=== PATIENT | male | born 1955 | race Caucasian/White ===

== ENCOUNTER 2017-12-24 14:14 | Inpatient (IN) | payer MEDICAID, OTHER ==
[2017-12-24] MEDS ORDERED: Aspirin 325 mg EC Tablets PO STA (14:17)
[2017-12-24] MEDS ORDERED: Heparin25000 units/250ml 1/2NS 25,000 UNITS/250 ML BAG IV STA (14:17)
[2017-12-24] MEDS ORDERED: Morphine 4 MG/ML VIAL ONE (14:24)
[2017-12-24] MEDS ORDERED: Morphine 4 MG/ML VIAL IV STA (14:29)
[2017-12-24 14:32] LABS: BASO # 0.1 K/uL (0.0-0.2); BASO % 0.4 % (0.0-2.0); EOS % 0.2 % (0.0-4.0); HEMOGLOBIN 15.5 g/dL (12.0-18.0); LYMPH # 1.4 K/uL (1.0-4.3); LYMPH % 10.3 % (20.0-40.0); MEAN CELL VOLUME 86.3 fL (80.0-94.0); MEAN CORPUSCULAR HEMOGLOBIN 30.8 pg (27.0-31.0); MEAN CORPUSCULAR HGB CONC 35.6 g/dL (33.0-37.0); MEAN PLATELET VOLUME 10.8 fL (7.2-11.7); MONO # 1.2 K/uL (0.0-0.8); MONO % 8.5 % (0.0-10.0); NEUT # 11.2 K/uL (1.8-7.0); NEUT % 80.6 % (50.0-75.0); RBC 5.05 Mil/uL (4.40-5.90); RED CELL DISTRIBUTION WIDTH 14.7 % (11.5-14.5); WHITE BLOOD COUNT 13.9 K/uL (4.8-10.8)
[2017-12-24 14:35] LABS: NRBC % 0.7 % (0.0-2.0)
[2017-12-24] MEDS ORDERED: Phenylephrine 10 mg/ml Inj ONE (14:38)
[2017-12-24 14:39] LABS: INR 1.1
[2017-12-24 14:41] LABS: PROTHROMBIN TIME 11.9 SECONDS (9.7-12.2)
[2017-12-24 14:44] LABS: ALB/GLOB RATIO 1.2 (1.0-2.1); ALBUMIN 4.8 g/dL (3.5-5.0); ALT/SGPT 89 U/L (21-72); AST/SGOT 356 U/L (17-59); BLOOD UREA NITROGEN 13 mg/dL (9-20); CALCIUM 9.9 mg/dl (8.6-10.4); GFR AFRICAN-AMERICAN > 60; GFR NON-AFRICAN AMERICAN > 60; HDL CHOLESTEROL 42 mg/dL (30-70)
[2017-12-24] MEDS ORDERED: Midazolam 2 MG/2 ML VIAL ONE (14:48)
[2017-12-24 14:55] LABS: LDL CHOLESTEROL 145 mg/dL (0-129)
--- NOTE | 2017-12-24 14:56 | CP.PCM.CON ---
History of Present Illness - History of Present Illness History of Present Illness: Critical Care Consult Note HPI: This is a 62 year old [place] male (speaks Prem) with PMHx of T2DM, who presented to the ED with chest pain x 2 days. 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 Patient arrived here from [place] in October, visiting a friend from his village. Patient does not have family here, he is receding with his friend. He started to have sharp chest pain that started 2 days ago. Initially the pain was bearable, but over time it started to make him diaphoretic and dizzy. Patient was code heart with ST depressions in the inferior wall leads. S/P Cardiac Cath with RCA: Ostial 80%, Mid 100%, PDA 80%, EF: 40%, Inferior akinetic - 4 stents placed. Denied fever, chills, headache, chest pain, SOB, abdominal pain, n/v/d/c, or urinary symptoms. PMHx: T2DM PSHx: Denied Meds: Metformin BID All: NKDA SHx: Denied any tobacco, ETOH or illicit drug use FHx: Unremarkable Past Patient History - Infectious Disease Hx of Infectious Diseases: None - Past Social History Smoking Status: Never Smoked - ENDOCRINE/METABOLIC Hx Diabetes Mellitus Type 2: Yes - PSYCHIATRIC Hx Substance Use: No Meds Allergies/Adverse Reactions: Allergies Allergy/AdvReac Type Severity Reaction Status Date / Time Unobtainable Allergy Verified 12/24/17 14:19 Physical Exam - Constitutional Appears: No Acute Distress - Head Exam Head Exam: NORMAL INSPECTION, NORMOCEPHALIC - Eye Exam Eye Exam: EOMI, Normal appearance, PERRL Pupil Exam: NORMAL ACCOMODATION - ENT Exam ENT Exam: Mucous Membranes Moist - Respiratory Exam Respiratory Exam: Clear to Auscultation Bilateral, NORMAL BREATHING PATTERN - Cardiovascular Exam Cardiovascular Exam: Tachycardia - GI/Abdominal Exam GI & Abdominal Exam: Normal Bowel Sounds, Soft. absent: Distended, Tenderness - Extremities Exam Extremities exam: Positive for: normal inspection, pedal pulses present. Negative for: pedal edema, tenderness Additional comments: right groin catherization site, dressing C/D/I - Neurological Exam Neurological exam: Alert, CN II-XII Intact, Oriented x3 - Psychiatric Exam Psychiatric exam: Normal Affect - Skin Skin Exam: Dry, Intact, Normal Color, Warm Results - Vital Signs Recent Vital Signs: Last Vital Signs Temp 98.3 F 12/24/17 14:15 Pulse 99 H 12/24/17 14:15 Resp 20 12/24/17 14:15 BP 141/88 12/24/17 14:15 Pulse Ox 98 12/24/17 14:15 - Labs Result Diagrams: 12/24/17 14:27 12/24/17 14:27 Labs: Laboratory Results - last 24 hr 12/24/17 12/24/17 12/24/17 14:27 14:27 14:27 WBC 13.9 H RBC 5.05 Hgb 15.5 Hct 43.6 MCV 86.3 MCH 30.8 MCHC 35.6 RDW 14.7 H Plt Count 205 MPV 10.8 Neut % (Auto) 80.6 H Lymph % (Auto) 10.3 L [place] % (Auto) 8.5 Eos % (Auto) 0.2 Baso % (Auto) 0.4 Neut # (Auto) 11.2 H Lymph # (Auto) 1.4 [place] # (Auto) 1.2 H Eos # (Auto) 0.0 Baso # (Auto) 0.1 PT 11.9 INR 1.1 APTT 36 H Sodium 139 Potassium 4.4 Chloride 99 Carbon Dioxide 25 Anion Gap 19 BUN 13 Creatinine 1.0 Est GFR ( Amer) > 60 Est GFR (Non-Af Amer) > 60 Random Glucose 260 H Calcium 9.9 Total Bilirubin 1.1 AST 356 H ALT 89 H Alkaline Phosphatase 110 Total Protein 8.8 H Albumin 4.8 Globulin 4.0 H Albumin/Globulin Ratio 1.2 Triglycerides 143 Cholesterol 199 LDL Cholesterol Direct 145 H HDL Cholesterol 42 Assessment & Plan - Assessment and Plan (Free Text) Plan: Neuro: GCS 15 Cardio: A: STEMI; CODE HEART - EKG: Inferior wall HI - Courtesy Van Driver with Dr. Madrid --> L Main: Patent, LAD proximal 40%, LCx/OM: OM 60%, RCA: Ostial 80%, Mid 100%, PDA 80%, EF: 40%, Inferior akinetic - ECHO - Serial EKGs, lipid panel - ASA, Brilinta (x 1 year), Cozaar, Metoprolol, Crestor - Integrilin drip x 16 hrs, 1/2 NS 50cc x 12 hours Pulm: - No acute issues Endo: A: T2DM - Accuchecks - Carb Consistent / HHD - ISS- low - HGA1C - ASA, Brilinta, Cozaar, Metoprolol, Crestor Prophylaxis: - Pepcid BID - SCDs, ASA, Brilinta, Integrillin jacky Lord, Kira Rasheed DO, PGY-1
[2017-12-24 15:02] LABS: CK-MB 91.3 ng/mL (0.0-3.38)
--- NOTE | 2017-12-24 15:11 | CP.PCM.PN ---
Subjective - Date & Time of Evaluation Date of Evaluation: 12/24/17 Time of Evaluation: 15:10 - Subjective Subjective: Progress note. Code Heart. Pt is 62 yo male, accompanied by family friend, coming in with chest pain x 2 days. Pt has unknown past medical hx and according to friend has not seen a doctor for a long time. 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 Pain was substernal and getting worse. Says never experienced before. So patient came in. Inferior wall UT noted on EKG, code heart called, and Dr. Madrid notified. Pt taken from ER to recyclable products sorter. Objective - Vital Signs/Intake and Output Vital Signs (last 24 hours): Temp Pulse Resp BP Pulse Ox 98.3 F 94 H 20 132/70 98 12/24/17 14:15 12/24/17 14:30 12/24/17 14:30 12/24/17 14:30 12/24/17 14:30 - Medications Medications: Current Medications Sodium Chloride (Sodium Chloride 0.9%) 1,000 mls @ 100 mls/hr IV .Q10H ELIAS Ondansetron HCl (Zofran Inj) 4 mg IVP Q6H PRN PRN Reason: Nausea/Vomiting Pantoprazole Sodium (Protonix Ec Tab) 40 mg PO DAILY ELIAS - Labs Labs: 12/24/17 14:27 12/24/17 14:27 PT 11.9 SECONDS (9.7-12.2) 12/24/17 14:27 INR 1.1 12/24/17 14:27 APTT 36 SECONDS (21-34) H 12/24/17 14:27 - Constitutional Appears: In Acute Distress - Head Exam Head Exam: ATRAUMATIC, NORMAL INSPECTION, NORMOCEPHALIC - Eye Exam Eye Exam: EOMI - ENT Exam ENT Exam: Mucous Membranes Moist - Neck Exam Neck Exam: Full ROM, Normal Inspection - Respiratory Exam Respiratory Exam: absent: Respiratory Distress - Cardiovascular Exam Cardiovascular Exam: +S1, +S2 - GI/Abdominal Exam GI & Abdominal Exam: Soft, Normal Bowel Sounds. absent: Tenderness - Back Exam Back Exam: NORMAL INSPECTION - Neurological Exam Neurological Exam: Alert, Awake, Oriented x3 - Psychiatric Exam Psychiatric exam: Normal Affect, Normal Mood - Skin Skin Exam: Dry, Intact, Normal Color, Warm Assessment and Plan - Assessment and Plan (Free Text) Assessment: 62 yo male with -inferior wall mi -asa given -heparin 5000 iv stat -brillinta 180 mg -morphine 4 mg iv given -code heart called -taken to recyclable products sorter -continue to monitor -will be admitted to ICU
--- NOTE | 2017-12-24 15:24 | RAD ---
HISTORY: code heart COMPARISON: No prior. FINDINGS: LUNGS: No active pulmonary disease. PLEURA: No significant pleural effusion identified, no pneumothorax apparent. CARDIOVASCULAR: Normal. OSSEOUS STRUCTURES: No significant abnormalities. VISUALIZED UPPER ABDOMEN: Normal. OTHER FINDINGS: None. IMPRESSION: No active disease.
[2017-12-24] MEDS ORDERED: Nitroglycerin 50mg in D5W 50 MG/250 ML BOTTLE IV ONE (15:54)
--- NOTE | 2017-12-24 16:27 | CP.PCM.CON ---
History of Present Illness - History of Present Illness History of Present Illness: Patient presented with chest pain of 2 day duration with ongoing chest pain to the ER EKG shown inferior ST elevations with Q waves Code heart activated L Main: Patent LAD proximal 40% LCx/OM: OM 60% RCA: Ostial 80%, Mid 100%, PDA 80% EF: 40%, Inferior akinetic Successful intervention of RCA with 4 drug eluting stents Integrilin drip for 16 hours IVF 50ml 1/2 NS for 12 hours OOB to chair after 8pm tonight Brilinta 90 bid for 1 year ASA 81, Statins, B blockers, LEIGH I for life Past Patient History - Infectious Disease Hx of Infectious Diseases: None - Past Social History Smoking Status: Never Smoked - ENDOCRINE/METABOLIC Hx Diabetes Mellitus Type 2: Yes - PSYCHIATRIC Hx Substance Use: No Meds Allergies/Adverse Reactions: Allergies Allergy/AdvReac Type Severity Reaction Status Date / Time Unobtainable Allergy Verified 12/24/17 14:19 - Medications Medications: Current Medications Aspirin (Aspirin Chewable) 81 mg PO DAILY ELIAS Famotidine (Pepcid) 20 mg PO BID ELIAS Sodium Chloride (Sodium Chloride 0.45%) 1,000 mls @ 50 mls/hr IV .Q20H ELIAS Stop: 12/25/17 04:31 Eptifibatide (Integrilin) 75 mg in 100 mls @ 0 mls/hr IV .Q0M ELIAS PRN Reason: 11 MCG/KG/MIN Stop: 12/25/17 08:31 Insulin Human Regular (Novolin R) 0 unit SC ACHS ELIAS PRN Reason: Protocol Losartan Potassium (Cozaar) 25 mg PO DAILY ELIAS Ondansetron HCl (Zofran Inj) 4 mg IVP Q6H PRN PRN Reason: Nausea/Vomiting Rosuvastatin Calcium (Crestor) 40 mg PO HS ELIAS Ticagrelor (Brilinta) 90 mg PO BID ELIAS Results - Vital Signs Recent Vital Signs: Last Vital Signs Temp 98.3 F 12/24/17 14:15 Pulse 94 H 12/24/17 14:30 Resp 20 12/24/17 14:30 BP 132/70 12/24/17 14:30 Pulse Ox 98 12/24/17 14:30 - Labs Result Diagrams: 12/24/17 14:27 12/24/17 14:27 Labs: Laboratory Results - last 24 hr 12/24/17 12/24/17 12/24/17 14:27 14:27 14:27 WBC 13.9 H RBC 5.05 Hgb 15.5 Hct 43.6 MCV 86.3 MCH 30.8 MCHC 35.6 RDW 14.7 H Plt Count 205 MPV 10.8 Neut % (Auto) 80.6 H Lymph % (Auto) 10.3 L [place] % (Auto) 8.5 Eos % (Auto) 0.2 Baso % (Auto) 0.4 Neut # (Auto) 11.2 H Lymph # (Auto) 1.4 [place] # (Auto) 1.2 H Eos # (Auto) 0.0 Baso # (Auto) 0.1 PT 11.9 INR 1.1 APTT 36 H Sodium 139 Potassium 4.4 Chloride 99 Carbon Dioxide 25 Anion Gap 19 BUN 13 Creatinine 1.0 Est GFR ( Amer) > 60 Est GFR (Non-Af Amer) > 60 Random Glucose 260 H Calcium 9.9 Total Bilirubin 1.1 AST 356 H ALT 89 H Alkaline Phosphatase 110 Total Creatine Kinase 2370 H CK-MB (Mass) 91.3 H Troponin I 89.3000 H* Total Protein 8.8 H Albumin 4.8 Globulin 4.0 H Albumin/Globulin Ratio 1.2 Triglycerides 143 Cholesterol 199 LDL Cholesterol Direct 145 H HDL Cholesterol 42 Blood Type Antibody Screen 12/24/17 14:27 WBC RBC Hgb Hct MCV MCH MCHC RDW Plt Count MPV Neut % (Auto) Lymph % (Auto) [place] % (Auto) Eos % (Auto) Baso % (Auto) Neut # (Auto) Lymph # (Auto) [place] # (Auto) Eos # (Auto) Baso # (Auto) PT INR APTT Sodium Potassium Chloride Carbon Dioxide Anion Gap BUN Creatinine Est GFR ( Amer) Est GFR (Non-Af Amer) Random Glucose Calcium Total Bilirubin AST ALT Alkaline Phosphatase Total Creatine Kinase CK-MB (Mass) Troponin I Total Protein Albumin Globulin Albumin/Globulin Ratio Triglycerides Cholesterol LDL Cholesterol Direct HDL Cholesterol Blood Type O POSITIVE Antibody Screen Negative
[2017-12-24] MEDS ORDERED: Eptifibatide 0.75 mg/ml 75 MG/100 ML BOTTLE IV SCH ×2 (16:30)
[2017-12-24] MEDS ORDERED: Sodium Chloride 0.9% 1,000 ML IV SCH (16:30)
[2017-12-24] MEDS ORDERED: Sodium Chloride 0.45% 1,000 ML IV SCH (16:30)
[2017-12-24] MEDS ORDERED: Eptifibatide 0.75 mg/ml 75 MG/100 ML BOTTLE IV ONE (16:46)
[2017-12-24] MEDS ORDERED: Eptifibatide 20 mg/10mL Inj IVP ONE (16:46)
[2017-12-24] MEDS: (Novolin R) Insulin Human Regular 100 units/ml vial SC SCH ×2 (17:00→23:00)
[2017-12-24] MEDS: Metoprolol Succinate 12.5 mg XL Tab PO SCH (17:33)
--- NOTE | 2017-12-24 17:58 | C.PDOC ---
History Of Present Illness 62 y/o male with history of DM presents to ED with c/o chest pain since yesterday associated with mild sob. Patient went to a primary doctor office and had EKG done that showed ST elevations, was sent to ED immediately. Patient denies fever, cough or any other complaints at this time. Chief Complaint (Nursing): Chest Pain History Per: Patient, EMS History/Exam Limitations: no limitations Onset/Duration Of Symptoms: Days Current Symptoms Are (Timing): Still Present Quality: "Pain" Past Medical History Reviewed: Historical Data, Nursing Documentation, Vital Signs Vital Signs: Last Vital Signs Temp 99.6 F 12/24/17 20:00 Pulse 104 H 12/24/17 21:00 Resp 29 H 12/24/17 21:00 BP 131/69 12/24/17 21:00 Pulse Ox 99 12/24/17 21:00 - Medical History PMH: No Chronic Diseases Surgical History: No Surg Hx Family History: States: No Known Family Hx - Social History Hx Alcohol Use: No Hx Substance Use: No - Immunization History Hx Tetanus Toxoid Vaccination: No Hx Influenza Vaccination: No Hx Pneumococcal Vaccination: No Review Of Systems Constitutional: Negative for: Fever, Chills Cardiovascular: Positive for: Chest Pain. Negative for: Palpitations Respiratory: Positive for: Shortness of Breath. Negative for: Cough Gastrointestinal: Negative for: Nausea, Vomiting Physical Exam - Physical Exam Appears: Non-toxic, No Acute Distress Skin: Warm, Dry, No Rash Head: Atraumatic, Normacephalic Eye(s): bilateral: Normal Inspection Oral Mucosa: Moist Neck: Normal ROM, Supple Cardiovascular: Rhythm Regular Respiratory: Normal Breath Sounds, No Rales, No Rhonchi, No Wheezing Gastrointestinal/Abdominal: Soft, No Tenderness, No Guarding, No Rebound Extremity: Normal ROM, No Pedal Edema, Capillary Refill (<2 seconds) Neurological/Psych: Oriented x3, Normal Speech, Normal Cognition ED Course And Treatment - Laboratory Results Result Diagrams: 12/24/17 14:27 12/24/17 14:27 ECG: Interpreted By Me, Viewed By Me Interpretation Of ECG: ST elevations in 2,3 and AVF. 1st degree AV block. 93 BPM Rate From EC (BPM) O2 Sat by Pulse Oximetry: 98 (RA) Pulse Ox Interpretation: Normal Critical Care Time - Critical Care Note Total Time (in mins): 30 Documented critical care: time excludes all time spent performing seperately billable procedures. Medical Decision Making Medical Decision Making: Progress: 1410: Code heart called Spoke to Dr. Holt soon after Patient medicated in ED as instructed by Dr. 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 I have reviewed the chart and agree that the record accurately reflects my personal performance of the history, physical exam, medical decision making, and the department course for this patient. I have also personally directed, reviewed, and agree with the discharge instructions and disposition.
[2017-12-24] MEDS ORDERED: Metoprolol Succinate 12.5 mg XL Tab PO SCH (18:00)
--- NOTE | 2017-12-24 19:11 | CP.PCM.HP ---
Past Patient History - Infectious Disease Hx of Infectious Diseases: None - Past Medical History & Family History Past Medical History?: Yes - Past Social History Smoking Status: Never Smoked - ENDOCRINE/METABOLIC Hx Diabetes Mellitus Type 2: Yes - MUSCULOSKELETAL/RHEUMATOLOGICAL Hx Falls: No - PSYCHIATRIC Hx Substance Use: No - ANESTHESIA Hx Anesthesia: No Hx Anesthesia Reactions: No Hx Malignant Hyperthermia: No Has any member of the family had a problem w/ anesthesia?: No Meds Allergies/Adverse Reactions: Allergies Allergy/AdvReac Type Severity Reaction Status Date / Time Unobtainable Allergy Verified 12/24/17 14:19 Physical Exam - Constitutional Appears: Well - Head Exam Head Exam: ATRAUMATIC, NORMAL INSPECTION, NORMOCEPHALIC - Eye Exam Eye Exam: EOMI, Normal appearance, PERRL Pupil Exam: NORMAL ACCOMODATION, PERRL - ENT Exam ENT Exam: Mucous Membranes Moist, Normal Exam - Neck Exam Neck exam: Positive for: Normal Inspection - Respiratory Exam Respiratory Exam: Decreased Breath Sounds - Cardiovascular Exam Cardiovascular Exam: REGULAR RHYTHM, +S1, +S2 - GI/Abdominal Exam GI & Abdominal Exam: Diminished Bowel Sounds, Soft - Rectal Exam Rectal Exam: Deferred Results - Vital Signs Recent Vital Signs: Last Vital Signs Temp 98.4 F 12/24/17 16:00 Pulse 104 H 12/24/17 18:00 Resp 18 12/24/17 18:00 BP 121/80 12/24/17 18:00 Pulse Ox 98 12/24/17 18:06 - Labs Result Diagrams: 12/24/17 14:27 12/24/17 14:27 Labs: Laboratory Results - last 24 hr 12/24/17 12/24/17 12/24/17 14:27 14:27 14:27 WBC 13.9 H RBC 5.05 Hgb 15.5 Hct 43.6 MCV 86.3 MCH 30.8 MCHC 35.6 RDW 14.7 H Plt Count 205 MPV 10.8 Neut % (Auto) 80.6 H Lymph % (Auto) 10.3 L [place] % (Auto) 8.5 Eos % (Auto) 0.2 Baso % (Auto) 0.4 Neut # (Auto) 11.2 H Lymph # (Auto) 1.4 [place] # (Auto) 1.2 H Eos # (Auto) 0.0 Baso # (Auto) 0.1 PT 11.9 INR 1.1 APTT 36 H Sodium 139 Potassium 4.4 Chloride 99 Carbon Dioxide 25 Anion Gap 19 BUN 13 Creatinine 1.0 Est GFR ( Amer) > 60 Est GFR (Non-Af Amer) > 60 POC Glucose (mg/dL) Random Glucose 260 H Calcium 9.9 Total Bilirubin 1.1 AST 356 H ALT 89 H Alkaline Phosphatase 110 Total Creatine Kinase 2370 H CK-MB (Mass) 91.3 H Troponin I 89.3000 H* Total Protein 8.8 H Albumin 4.8 Globulin 4.0 H Albumin/Globulin Ratio 1.2 Triglycerides 143 Cholesterol 199 LDL Cholesterol Direct 145 H HDL Cholesterol 42 Blood Type Antibody Screen 12/24/17 12/24/17 14:27 16:54 WBC RBC Hgb Hct MCV MCH MCHC RDW Plt Count MPV Neut % (Auto) Lymph % (Auto) [place] % (Auto) Eos % (Auto) Baso % (Auto) Neut # (Auto) Lymph # (Auto) [place] # (Auto) Eos # (Auto) Baso # (Auto) PT INR APTT Sodium Potassium Chloride Carbon Dioxide Anion Gap BUN Creatinine Est GFR ( Amer) Est GFR (Non-Af Amer) POC Glucose (mg/dL) 254 H Random Glucose Calcium Total Bilirubin AST ALT Alkaline Phosphatase Total Creatine Kinase CK-MB (Mass) Troponin I Total Protein Albumin Globulin Albumin/Globulin Ratio Triglycerides Cholesterol LDL Cholesterol Direct HDL Cholesterol Blood Type O POSITIVE Antibody Screen Negative
[2017-12-24] MEDS: Eptifibatide 0.75 mg/ml 75 MG/100 ML BOTTLE IV SCH ×2 (19:55→23:00)
--- NOTE | 2017-12-24 22:09 | CP.PCM.HP ---
Past Patient History - Infectious Disease Hx of Infectious Diseases: None - Past Medical History & Family History Past Medical History?: Yes - Past Social History Smoking Status: Never Smoked - ENDOCRINE/METABOLIC Hx Diabetes Mellitus Type 2: Yes - MUSCULOSKELETAL/RHEUMATOLOGICAL Hx Falls: No - PSYCHIATRIC Hx Substance Use: No - ANESTHESIA Hx Anesthesia: No Hx Anesthesia Reactions: No Hx Malignant Hyperthermia: No Has any member of the family had a problem w/ anesthesia?: No Meds Allergies/Adverse Reactions: Allergies Allergy/AdvReac Type Severity Reaction Status Date / Time No Known Allergies Allergy Verified 12/24/17 19:39 Results - Vital Signs Recent Vital Signs: Last Vital Signs Temp 99.6 F 12/24/17 20:00 Pulse 104 H 12/24/17 21:00 Resp 29 H 12/24/17 21:00 BP 131/69 12/24/17 21:00 Pulse Ox 99 12/24/17 21:00 - Labs Result Diagrams: 12/24/17 14:27 12/24/17 14:27 Labs: Laboratory Results - last 24 hr 12/24/17 12/24/17 12/24/17 14:27 14:27 14:27 WBC 13.9 H RBC 5.05 Hgb 15.5 Hct 43.6 MCV 86.3 MCH 30.8 MCHC 35.6 RDW 14.7 H Plt Count 205 MPV 10.8 Neut % (Auto) 80.6 H Lymph % (Auto) 10.3 L [place] % (Auto) 8.5 Eos % (Auto) 0.2 Baso % (Auto) 0.4 Neut # (Auto) 11.2 H Lymph # (Auto) 1.4 [place] # (Auto) 1.2 H Eos # (Auto) 0.0 Baso # (Auto) 0.1 PT 11.9 INR 1.1 APTT 36 H Sodium 139 Potassium 4.4 Chloride 99 Carbon Dioxide 25 Anion Gap 19 BUN 13 Creatinine 1.0 Est GFR ( Amer) > 60 Est GFR (Non-Af Amer) > 60 POC Glucose (mg/dL) Random Glucose 260 H Calcium 9.9 Total Bilirubin 1.1 AST 356 H ALT 89 H Alkaline Phosphatase 110 Total Creatine Kinase 2370 H CK-MB (Mass) 91.3 H Troponin I 89.3000 H* Total Protein 8.8 H Albumin 4.8 Globulin 4.0 H Albumin/Globulin Ratio 1.2 Triglycerides 143 Cholesterol 199 LDL Cholesterol Direct 145 H HDL Cholesterol 42 Blood Type Antibody Screen 12/24/17 12/24/17 12/24/17 14:27 16:54 21:09 WBC RBC Hgb Hct MCV MCH MCHC RDW Plt Count MPV Neut % (Auto) Lymph % (Auto) [place] % (Auto) Eos % (Auto) Baso % (Auto) Neut # (Auto) Lymph # (Auto) [place] # (Auto) Eos # (Auto) Baso # (Auto) PT INR APTT Sodium Potassium Chloride Carbon Dioxide Anion Gap BUN Creatinine Est GFR ( Amer) Est GFR (Non-Af Amer) POC Glucose (mg/dL) 254 H 340 H Random Glucose Calcium Total Bilirubin AST ALT Alkaline Phosphatase Total Creatine Kinase CK-MB (Mass) Troponin I Total Protein Albumin Globulin Albumin/Globulin Ratio Triglycerides Cholesterol LDL Cholesterol Direct HDL Cholesterol Blood Type O POSITIVE Antibody Screen Negative
--- NOTE | 2017-12-25 02:44 | CARDCATH ---
PROCEDURE DATE: 12/24/2017 PROCEDURES: 1. Left heart catheterization. 2. Coronary angiogram. 3. Right coronary artery intervention and drug-eluting stent placement. CLINICAL INDICATIONS: 1. Acute inferior wall ST elevation myocardial infarction. 2. Chest pain. 3. Hypertension. 4. Diabetes. 5. Hyperlipidemia. BRIEF CLINICAL HISTORY: Winter Hay is a 62-year-old gentleman with a history of hypertension, diabetes, hyperlipidemia, presented to [facility] emergency room with two days duration of chest pain. The EKG in the ER has revealed acute ST elevations and Q wave from the inferior leads. Code heart was activated, and the patient was brought to catheter lab. After informed consent, the patient was prepped and draped in the usual sterile fashion. 2% lidocaine was given in the right groin for local anesthesia. Using the usual diagnostic catheter, left heart catheterization and coronary angiogram was performed. FINDINGS: 1. Left main coronary artery is patent. 2. Proximal LAD has 40% stenosis. Mid and distal LAD is patent. Diagonal valves are patent. 3. Left circumflex has a very small artery. Obtuse marginal 1 has a 50% to 60% stenosis. 4. Right coronary artery is dominant. Ostial right coronary artery is 80% stenosis. Mid right coronary artery is totally occluded. The patient was loaded with Brilinta, aspirin and IV heparin in the ER. ACT was maintained about 250. Due to the clot burden in the RCA, the patient was also started on Integrilin bolus and drip. Right coronary artery intervention: Right coronary artery was engaged using JR4 6-Iranian guide catheter. The lesions were crossed using run through coronary wire. The mid right coronary artery was pre-dilated using 2.5 x 15 compliant balloon. Subsequent angiogram has revealed heavy clot burden in the distal RCA. There was an 80% PDA lesion also detected. There was a long lesion in the mid right coronary artery. Using a Pronto aspiration catheter, the clot was aspirated. Two passes were performed. PDA lesion was predilated and stented with 2.25 x 12 Xience Alpine drug eluting stent. Mid to distal ostia was stented using 2.75 x 34 Resolute Giuseppe drug-eluting stent. Mid to proximal RCA was stented using 2.75 x 26 Resolute Giuseppe drug-eluting stents. The stents were adequately post dilated. Stent overlap was also post dilated. Then the proximal ostia was predilated using 2.5 x 12 compliant balloon, stented with 3 x 28 Xience Alpine drug-eluting stent. Excellent final angiographic results with brisk [place]-3 flow noted. SUMMARY: Acute inferior wall ST-elevation myocardial infarction. The patient had chest pain duration of two days due to heavy clot burden, Pronto aspiration thrombectomy was performed. The patient will be transferred to the ICU for further management. Vaughn Madrid MD
[2017-12-25] MEDS: Eptifibatide 0.75 mg/ml 75 MG/100 ML BOTTLE IV SCH (05:00)
[2017-12-25 06:38] LABS: BASO % 0.2 % (0.0-2.0); HEMOGLOBIN 13.1 g/dL (12.0-18.0); LYMPH # 1.2 K/uL (1.0-4.3); MEAN CELL VOLUME 87.6 fL (80.0-94.0); MEAN CORPUSCULAR HEMOGLOBIN 30.9 pg (27.0-31.0); MEAN CORPUSCULAR HGB CONC 35.3 g/dL (33.0-37.0); MEAN PLATELET VOLUME 11.6 fL (7.2-11.7); MONO # 2.2 K/uL (0.0-0.8); MONO % 10.5 % (0.0-10.0); NEUT # 17.1 K/uL (1.8-7.0); NEUT % 83.3 % (50.0-75.0); PLATELET COUNT 219 K/uL (130-400); RBC 4.25 Mil/uL (4.40-5.90); RED CELL DISTRIBUTION WIDTH 14.8 % (11.5-14.5); WHITE BLOOD COUNT 20.5 K/uL (4.8-10.8)
[2017-12-25 06:55] LABS: ALB/GLOB RATIO 1.2 (1.0-2.1); ALT/SGPT 66 U/L (21-72); AST/SGOT 238 U/L (17-59); BLOOD UREA NITROGEN 15 mg/dL (9-20); CALCIUM 8.8 mg/dl (8.6-10.4); GFR AFRICAN-AMERICAN > 60; GFR NON-AFRICAN AMERICAN > 60
[2017-12-25] MEDS: (Novolin R) Insulin Human Regular 100 units/ml vial SC SCH ×4 (07:38→21:18)
[2017-12-25 08:35] LABS: BANDS 27 % (0-2); LYMPHOCYTE 5 % (20-40); MONOCYTE 6 % (0-10); NEUTROPHIL 62 % (50-75); TOTAL CELLS COUNTED 100
[2017-12-25 08:36] LABS: LARGE PLATELETS PRESENT; PLATELET ESTIMATE NORMAL (NORMAL)
[2017-12-25] MEDS: Metoprolol Succinate 12.5 mg XL Tab PO SCH ×2 (10:28→18:01)
[2017-12-25 10:29] LABS: BASO % 0.3 % (0.0-2.0); HEMOGLOBIN 12.4 g/dL (12.0-18.0); LYMPH # 1.3 K/uL (1.0-4.3); LYMPH % 6.9 % (20.0-40.0); MEAN CELL VOLUME 87.3 fL (80.0-94.0); MEAN CORPUSCULAR HEMOGLOBIN 30.5 pg (27.0-31.0); MEAN CORPUSCULAR HGB CONC 34.9 g/dL (33.0-37.0); MEAN PLATELET VOLUME 11.2 fL (7.2-11.7); MONO # 1.5 K/uL (0.0-0.8); MONO % 8.4 % (0.0-10.0); NEUT # 15.5 K/uL (1.8-7.0); NEUT % 84.4 % (50.0-75.0); RBC 4.07 Mil/uL (4.40-5.90); RED CELL DISTRIBUTION WIDTH 14.6 % (11.5-14.5); WHITE BLOOD COUNT 18.4 K/uL (4.8-10.8)
[2017-12-25 11:04] LABS: CK-MB 30.9 ng/mL (0.0-3.38)
[2017-12-25 11:29] LABS: TROPONIN I 98.4 ng/mL (0.00-0.120)
--- NOTE | 2017-12-25 11:40 | CP.CCUPN ---
<Kira Rasheed - Last Filed: 12/25/17 11:36> CCU Subjective - Physician Review Subjective (Free Text): Patient seen and examined at bedside. Tolerated diet, ambulating around room, denied chest pain, shortness of breath. CCU Objective - Vital Signs / Intake & Output Vital Signs (Last 4 hours): Vital Signs Temp Pulse Resp BP Pulse Ox 12/25/17 11:00 103 H 22 128/79 98 12/25/17 10:00 104 H 22 108/70 99 12/25/17 09:00 103 H 21 110/54 L 98 12/25/17 08:00 98.7 F 101 H 22 101/64 99 Intake and Output (Last 8hrs): Intake & Output 12/24/17 12/25/17 12/25/17 22:59 06:59 14:59 Intake Total 787 848 201 Output Total 600 400 500 Balance 187 448 -299 Weight 153 lb 7.068 oz 153 lb 7.068 oz Intake: Intake, IV Amount 427 488 61 Left Antecubital 200 Right Antecubital 77 88 11 Right Antecubital side- 150 400 50 port Oral 360 360 140 Output: Urine 600 400 500 Urine, Voided 600 400 500 Other: # Voids Urine, Voided 1 1 - Medications Active Medications: Active Medications Generic Name Dose Route Start Last Admin Trade Name Freq PRN Reason Stop Dose Admin Aspirin 81 mg 12/25/17 10:00 12/25/17 10:28 Aspirin Chewable PO 81 mg DAILY ELIAS Administration Famotidine 20 mg 12/24/17 18:00 12/25/17 10:28 Pepcid PO 20 mg BID ELIAS Administration Heparin Sodium (Porcine) 5,000 units 12/25/17 14:00 Heparin SC Q8 ELIAS Insulin Human Regular 0 unit 12/25/17 08:15 Novolin R SC ACHS ELIAS Protocol Losartan Potassium 25 mg 12/25/17 10:00 12/25/17 10:29 Cozaar PO 25 mg DAILY ELIAS Administration Metoprolol Succinate 12.5 mg 12/24/17 18:00 12/25/17 10:28 Toprol Xl PO 12.5 mg BID ELIAS Administration Ondansetron HCl 4 mg 12/24/17 14:58 Zofran Inj IVP Q6H PRN Nausea/Vomiting Rosuvastatin Calcium 40 mg 12/24/17 22:00 12/24/17 21:10 Crestor PO 40 mg HS ELIAS Administration Ticagrelor 90 mg 12/25/17 10:00 12/25/17 10:28 Brilinta PO 90 mg BID ELIAS Administration - Patient Studies Lab Studies: Lab Studies 12/25/17 12/25/17 12/25/17 Range/Units 10:24 10:24 07:23 WBC 18.4 H (4.8-10.8) K/uL RBC 4.07 L (4.40-5.90) Mil/uL Hgb 12.4 (12.0-18.0) g/dL Hct 35.5 (35.0-51.0) % MCV 87.3 (80.0-94.0) fL MCH 30.5 (27.0-31.0) pg MCHC 34.9 (33.0-37.0) g/dL RDW 14.6 H (11.5-14.5) % Plt Count 195 (130-400) K/uL MPV 11.2 (7.2-11.7) fL Neut % (Auto) 84.4 H (50.0-75.0) % Lymph % (Auto) 6.9 L (20.0-40.0) % Cedar % (Auto) 8.4 (0.0-10.0) % Eos % (Auto) 0.0 (0.0-4.0) % Baso % (Auto) 0.3 (0.0-2.0) % Neut # (Auto) 15.5 H (1.8-7.0) K/uL Lymph # (Auto) 1.3 (1.0-4.3) K/uL Cedar # (Auto) 1.5 H (0.0-0.8) K/uL Eos # (Auto) 0.0 (0.0-0.7) K/uL Baso # (Auto) 0.0 (0.0-0.2) K/uL Neutrophils % (Manual) (50-75) % Band Neutrophils % (0-2) % Lymphocytes % (Manual) (20-40) % Monocytes % (Manual) (0-10) % Platelet Estimate (NORMAL) Large Platelets RBC Morphology PT (9.7-12.2) SECONDS INR APTT (21-34) SECONDS Sodium (132-148) mmol/L Potassium (3.6-5.2) mmol/L Chloride (98-107) mmol/L Carbon Dioxide (22-30) mmol/L Anion Gap (10-20) BUN (9-20) mg/dL Creatinine (0.8-1.5) mg/dL Est GFR ( Amer) Est GFR (Non-Af Amer) POC Glucose (mg/dL) 318 H (65-110) mg/dL Random Glucose (75-110) mg/dL Hemoglobin A1c (4.2-6.5) % Calcium (8.6-10.4) mg/dl Phosphorus (2.5-4.5) mg/dL Magnesium (1.6-2.3) mg/dL Total Bilirubin (0.2-1.3) mg/dL AST (17-59) U/L ALT (21-72) U/L Alkaline Phosphatase (38-126) U/L Total Creatine Kinase 1138 H (55-170) U/L CK-MB (Mass) 30.9 H (0.0-3.38) ng/mL Troponin I 98.4000 H* (0.00-0.120) ng/mL Total Protein (6.3-8.3) g/dL Albumin (3.5-5.0) g/dL Globulin (2.2-3.9) gm/dL Albumin/Globulin Ratio (1.0-2.1) Triglycerides (0-149) mg/dL Cholesterol (0-199) mg/dL LDL Cholesterol Direct (0-129) mg/dL HDL Cholesterol (30-70) mg/dL Blood Type Antibody Screen 12/25/1718 12/25/17 Range/Units 06:28 06:28 06:27 WBC 20.5 H (4.8-10.8) K/uL RBC 4.25 L (4.40-5.90) Mil/uL Hgb 13.1 D (12.0-18.0) g/dL Hct 37.3 (35.0-51.0) % MCV 87.6 (80.0-94.0) fL MCH 30.9 (27.0-31.0) pg MCHC 35.3 (33.0-37.0) g/dL RDW 14.8 H (11.5-14.5) % Plt Count 219 (130-400) K/uL MPV 11.6 (7.2-11.7) fL Neut % (Auto) 83.3 H (50.0-75.0) % Lymph % (Auto) 6.0 L (20.0-40.0) % Cedar % (Auto) 10.5 H (0.0-10.0) % Eos % (Auto) 0.0 (0.0-4.0) % Baso % (Auto) 0.2 (0.0-2.0) % Neut # (Auto) 17.1 H (1.8-7.0) K/uL Lymph # (Auto) 1.2 (1.0-4.3) K/uL Cedar # (Auto) 2.2 H (0.0-0.8) K/uL Eos # (Auto) 0.0 (0.0-0.7) K/uL Baso # (Auto) 0.0 (0.0-0.2) K/uL Neutrophils % (Manual) 62 (50-75) % Band Neutrophils % 27 H* (0-2) % Lymphocytes % (Manual) 5 L (20-40) % Monocytes % (Manual) 6 (0-10) % Platelet Estimate Normal (NORMAL) Large Platelets Present RBC Morphology Normal PT (9.7-12.2) SECONDS INR APTT (21-34) SECONDS Sodium 133 (132-148) mmol/L Potassium 4.3 (3.6-5.2) mmol/L Chloride 96 L (98-107) mmol/L Carbon Dioxide 21 L (22-30) mmol/L Anion Gap 20 (10-20) BUN 15 (9-20) mg/dL Creatinine 1.1 (0.8-1.5) mg/dL Est GFR ( Amer) > 60 Est GFR (Non-Af Amer) > 60 POC Glucose (mg/dL) (65-110) mg/dL Random Glucose 279 H (75-110) mg/dL Hemoglobin A1c 8.2 H (4.2-6.5) % Calcium 8.8 (8.6-10.4) mg/dl Phosphorus 3.4 (2.5-4.5) mg/dL Magnesium 1.7 (1.6-2.3) mg/dL Total Bilirubin 1.6 H (0.2-1.3) mg/dL AST 238 H D (17-59) U/L ALT 66 (21-72) U/L Alkaline Phosphatase 83 (38-126) U/L Total Creatine Kinase (55-170) U/L CK-MB (Mass) (0.0-3.38) ng/mL Troponin I (0.00-0.120) ng/mL Total Protein 7.2 (6.3-8.3) g/dL Albumin 4.0 (3.5-5.0) g/dL Globulin 3.2 (2.2-3.9) gm/dL Albumin/Globulin Ratio 1.2 (1.0-2.1) Triglycerides (0-149) mg/dL Cholesterol (0-199) mg/dL LDL Cholesterol Direct (0-129) mg/dL HDL Cholesterol (30-70) mg/dL Blood Type Antibody Screen 12/24/17 12/24/17 12/24/17 Range/Units 21:09 16:54 14:27 WBC (4.8-10.8) K/uL RBC (4.40-5.90) Mil/uL Hgb (12.0-18.0) g/dL Hct (35.0-51.0) % MCV (80.0-94.0) fL MCH (27.0-31.0) pg MCHC (33.0-37.0) g/dL RDW (11.5-14.5) % Plt Count (130-400) K/uL MPV (7.2-11.7) fL Neut % (Auto) (50.0-75.0) % Lymph % (Auto) (20.0-40.0) % Cedar % (Auto) (0.0-10.0) % Eos % (Auto) (0.0-4.0) % Baso % (Auto) (0.0-2.0) % Neut # (Auto) (1.8-7.0) K/uL Lymph # (Auto) (1.0-4.3) K/uL Cedar # (Auto) (0.0-0.8) K/uL Eos # (Auto) (0.0-0.7) K/uL Baso # (Auto) (0.0-0.2) K/uL Neutrophils % (Manual) (50-75) % Band Neutrophils % (0-2) % Lymphocytes % (Manual) (20-40) % Monocytes % (Manual) (0-10) % Platelet Estimate (NORMAL) Large Platelets RBC Morphology PT (9.7-12.2) SECONDS INR APTT (21-34) SECONDS Sodium (132-148) mmol/L Potassium (3.6-5.2) mmol/L Chloride (98-107) mmol/L Carbon Dioxide (22-30) mmol/L Anion Gap (10-20) BUN (9-20) mg/dL Creatinine (0.8-1.5) mg/dL Est GFR ( Amer) Est GFR (Non-Af Amer) POC Glucose (mg/dL) 340 H 254 H (65-110) mg/dL Random Glucose (75-110) mg/dL Hemoglobin A1c (4.2-6.5) % Calcium (8.6-10.4) mg/dl Phosphorus (2.5-4.5) mg/dL Magnesium (1.6-2.3) mg/dL Total Bilirubin (0.2-1.3) mg/dL AST (17-59) U/L ALT (21-72) U/L Alkaline Phosphatase (38-126) U/L Total Creatine Kinase (55-170) U/L CK-MB (Mass) (0.0-3.38) ng/mL Troponin I (0.00-0.120) ng/mL Total Protein (6.3-8.3) g/dL Albumin (3.5-5.0) g/dL Globulin (2.2-3.9) gm/dL Albumin/Globulin Ratio (1.0-2.1) Triglycerides (0-149) mg/dL Cholesterol (0-199) mg/dL LDL Cholesterol Direct (0-129) mg/dL HDL Cholesterol (30-70) mg/dL Blood Type O POSITIVE Antibody Screen Negative 12/24/17 12/24/17 12/24/17 Range/Units 14:27 14:27 14:27 WBC 13.9 H (4.8-10.8) K/uL RBC 5.05 (4.40-5.90) Mil/uL Hgb 15.5 (12.0-18.0) g/dL Hct 43.6 (35.0-51.0) % MCV 86.3 (80.0-94.0) fL MCH 30.8 (27.0-31.0) pg MCHC 35.6 (33.0-37.0) g/dL RDW 14.7 H (11.5-14.5) % Plt Count 205 (130-400) K/uL MPV 10.8 (7.2-11.7) fL Neut % (Auto) 80.6 H (50.0-75.0) % Lymph % (Auto) 10.3 L (20.0-40.0) % Cedar % (Auto) 8.5 (0.0-10.0) % Eos % (Auto) 0.2 (0.0-4.0) % Baso % (Auto) 0.4 (0.0-2.0) % Neut # (Auto) 11.2 H (1.8-7.0) K/uL Lymph # (Auto) 1.4 (1.0-4.3) K/uL Cedar # (Auto) 1.2 H (0.0-0.8) K/uL Eos # (Auto) 0.0 (0.0-0.7) K/uL Baso # (Auto) 0.1 (0.0-0.2) K/uL Neutrophils % (Manual) (50-75) % Band Neutrophils % (0-2) % Lymphocytes % (Manual) (20-40) % Monocytes % (Manual) (0-10) % Platelet Estimate (NORMAL) Large Platelets RBC Morphology PT 11.9 (9.7-12.2) SECONDS INR 1.1 APTT 36 H (21-34) SECONDS Sodium 139 (132-148) mmol/L Potassium 4.4 (3.6-5.2) mmol/L Chloride 99 (98-107) mmol/L Carbon Dioxide 25 (22-30) mmol/L Anion Gap 19 (10-20) BUN 13 (9-20) mg/dL Creatinine 1.0 (0.8-1.5) mg/dL Est GFR ( Amer) > 60 Est GFR (Non-Af Amer) > 60 POC Glucose (mg/dL) (65-110) mg/dL Random Glucose 260 H (75-110) mg/dL Hemoglobin A1c (4.2-6.5) % Calcium 9.9 (8.6-10.4) mg/dl Phosphorus (2.5-4.5) mg/dL Magnesium (1.6-2.3) mg/dL Total Bilirubin 1.1 (0.2-1.3) mg/dL AST 356 H (17-59) U/L ALT 89 H (21-72) U/L Alkaline Phosphatase 110 (38-126) U/L Total Creatine Kinase 2370 H (55-170) U/L CK-MB (Mass) 91.3 H (0.0-3.38) ng/mL Troponin I 89.3000 H* (0.00-0.120) ng/mL Total Protein 8.8 H (6.3-8.3) g/dL Albumin 4.8 (3.5-5.0) g/dL Globulin 4.0 H (2.2-3.9) gm/dL Albumin/Globulin Ratio 1.2 (1.0-2.1) Triglycerides 143 (0-149) mg/dL Cholesterol 199 (0-199) mg/dL LDL Cholesterol Direct 145 H (0-129) mg/dL HDL Cholesterol 42 (30-70) mg/dL Blood Type Antibody Screen Laboratory Results - last 24 hr 12/24/17 12/24/17 12/24/17 14:27 14:27 14:27 WBC 13.9 H RBC 5.05 Hgb 15.5 Hct 43.6 MCV 86.3 MCH 30.8 MCHC 35.6 RDW 14.7 H Plt Count 205 MPV 10.8 Neut % (Auto) 80.6 H Lymph % (Auto) 10.3 L Cedar % (Auto) 8.5 Eos % (Auto) 0.2 Baso % (Auto) 0.4 Neut # (Auto) 11.2 H Lymph # (Auto) 1.4 Cedar # (Auto) 1.2 H Eos # (Auto) 0.0 Baso # (Auto) 0.1 Neutrophils % (Manual) Band Neutrophils % Lymphocytes % (Manual) Monocytes % (Manual) Platelet Estimate Large Platelets RBC Morphology PT 11.9 INR 1.1 APTT 36 H Sodium 139 Potassium 4.4 Chloride 99 Carbon Dioxide 25 Anion Gap 19 BUN 13 Creatinine 1.0 Est GFR ( Amer) > 60 Est GFR (Non-Af Amer) > 60 POC Glucose (mg/dL) Random Glucose 260 H Hemoglobin A1c Calcium 9.9 Phosphorus Magnesium Total Bilirubin 1.1 AST 356 H ALT 89 H Alkaline Phosphatase 110 Total Creatine Kinase 2370 H CK-MB (Mass) 91.3 H Troponin I 89.3000 H* Total Protein 8.8 H Albumin 4.8 Globulin 4.0 H Albumin/Globulin Ratio 1.2 Triglycerides 143 Cholesterol 199 LDL Cholesterol Direct 145 H HDL Cholesterol 42 Blood Type Antibody Screen 12/24/17 12/24/17 12/24/17 14:27 16:54 21:09 WBC RBC Hgb Hct MCV MCH MCHC RDW Plt Count MPV Neut % (Auto) Lymph % (Auto) Cedar % (Auto) Eos % (Auto) Baso % (Auto) Neut # (Auto) Lymph # (Auto) Cedar # (Auto) Eos # (Auto) Baso # (Auto) Neutrophils % (Manual) Band Neutrophils % Lymphocytes % (Manual) Monocytes % (Manual) Platelet Estimate Large Platelets RBC Morphology PT INR APTT Sodium Potassium Chloride Carbon Dioxide Anion Gap BUN Creatinine Est GFR ( Amer) Est GFR (Non-Af Amer) POC Glucose (mg/dL) 254 H 340 H Random Glucose Hemoglobin A1c Calcium Phosphorus Magnesium Total Bilirubin AST ALT Alkaline Phosphatase Total Creatine Kinase CK-MB (Mass) Troponin I Total Protein Albumin Globulin Albumin/Globulin Ratio Triglycerides Cholesterol LDL Cholesterol Direct HDL Cholesterol Blood Type O POSITIVE Antibody Screen Negative 12/25/17 12/25/17 12/25/17 06:27 06:28 06:28 WBC 20.5 H RBC 4.25 L Hgb 13.1 D Hct 37.3 MCV 87.6 MCH 30.9 MCHC 35.3 RDW 14.8 H Plt Count 219 MPV 11.6 Neut % (Auto) 83.3 H Lymph % (Auto) 6.0 L Cedar % (Auto) 10.5 H Eos % (Auto) 0.0 Baso % (Auto) 0.2 Neut # (Auto) 17.1 H Lymph # (Auto) 1.2 Cedar # (Auto) 2.2 H Eos # (Auto) 0.0 Baso # (Auto) 0.0 Neutrophils % (Manual) 62 Band Neutrophils % 27 H* Lymphocytes % (Manual) 5 L Monocytes % (Manual) 6 Platelet Estimate Normal Large Platelets Present RBC Morphology Normal PT INR APTT Sodium 133 Potassium 4.3 Chloride 96 L Carbon Dioxide 21 L Anion Gap 20 BUN 15 Creatinine 1.1 Est GFR ( Amer) > 60 Est GFR (Non-Af Amer) > 60 POC Glucose (mg/dL) Random Glucose 279 H Hemoglobin A1c 8.2 H Calcium 8.8 Phosphorus 3.4 Magnesium 1.7 Total Bilirubin 1.6 H AST 238 H D ALT 66 Alkaline Phosphatase 83 Total Creatine Kinase CK-MB (Mass) Troponin I Total Protein 7.2 Albumin 4.0 Globulin 3.2 Albumin/Globulin Ratio 1.2 Triglycerides Cholesterol LDL Cholesterol Direct HDL Cholesterol Blood Type Antibody Screen 12/25/17 12/25/17 12/25/17 07:23 10:24 10:24 WBC 18.4 H RBC 4.07 L Hgb 12.4 Hct 35.5 MCV 87.3 MCH 30.5 MCHC 34.9 RDW 14.6 H Plt Count 195 MPV 11.2 Neut % (Auto) 84.4 H Lymph % (Auto) 6.9 L Cedar % (Auto) 8.4 Eos % (Auto) 0.0 Baso % (Auto) 0.3 Neut # (Auto) 15.5 H Lymph # (Auto) 1.3 Cedar # (Auto) 1.5 H Eos # (Auto) 0.0 Baso # (Auto) 0.0 Neutrophils % (Manual) Band Neutrophils % Lymphocytes % (Manual) Monocytes % (Manual) Platelet Estimate Large Platelets RBC Morphology PT INR APTT Sodium Potassium Chloride Carbon Dioxide Anion Gap BUN Creatinine Est GFR ( Amer) Est GFR (Non-Af Amer) POC Glucose (mg/dL) 318 H Random Glucose Hemoglobin A1c Calcium Phosphorus Magnesium Total Bilirubin AST ALT Alkaline Phosphatase Total Creatine Kinase 1138 H CK-MB (Mass) 30.9 H Troponin I 98.4000 H* Total Protein Albumin Globulin Albumin/Globulin Ratio Triglycerides Cholesterol LDL Cholesterol Direct HDL Cholesterol Blood Type Antibody Screen EKG/Cardiology Studies: Cardiology / EKG Studies 12/24/17 14:10 ELECTROCARDIOGRAM Stat Comment: Mode Of Transportation: BED Reason For Exam: chest pain 12/24/17 14:17 ELECTROCARDIOGRAM Stat Comment: Mode Of Transportation: BED Reason For Exam: chest pain 12/25/17 09:00 EKG [ELECTROCARDIOGRAM] DAILY Comment: Mode Of Transportation: Reason For Exam: STEMI 12/26/17 09:00 EKG [ELECTROCARDIOGRAM] DAILY Comment: Mode Of Transportation: Reason For Exam: STEMI Fingerstick Blood Sugar Results: 340 - Procedures Procedures (Free Text): 12/25/17 11:37 - Constitutional Appears: No Acute Distress - Head Exam Head Exam: NORMAL INSPECTION, NORMOCEPHALIC - Eye Exam Eye Exam: EOMI, Normal appearance, PERRL Pupil Exam: NORMAL ACCOMODATION - ENT Exam ENT Exam: Mucous Membranes Moist - Respiratory Exam Respiratory Exam: Clear to Auscultation Bilateral, NORMAL BREATHING PATTERN - Cardiovascular Exam Cardiovascular Exam: Tachycardia - GI/Abdominal Exam GI & Abdominal Exam: Normal Bowel Sounds, Soft. absent: Distended, Tenderness - Extremities Exam Extremities exam: Positive for: normal inspection, pedal pulses present. Negative for: pedal edema, tenderness Additional comments: right groin catherization site, dressing C/D/I - Neurological Exam Neurological exam: Alert, CN II-XII Intact, Oriented x3 - Psychiatric Exam Psychiatric exam: Normal Affect - Skin Skin Exam: Dry, Intact, Normal Color, Warm Critical Care Progress Note - Nutrition Nutrition: Nutrition Category Date Time Status Heart Healthy Diet [DIET] Diets 12/24/17 Dinner Active Assessment/Plan - Assessment and Plan (Free Text) Assessment: This is a 62 year old male (speaks Prem) with PMHx of T2DM, who presented to the ED with chest pain x 2 days. 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 Patient arrived here from [facility] in October, visiting a friend from [place]. Patient does not have family here, he is receding with his friend. He started to have sharp chest pain that started 2 days ago. Initially the pain was bearable, but over time it started to make him diaphoretic and dizzy. Patient was code heart with ST depressions in the inferior wall leads. S/P Cardiac Cath with RCA: Ostial 80%, Mid 100%, PDA 80%, EF: 40%, Inferior akinetic - 4 stents placed. Plan: Neuro: GCS 15 Cardio: A: STEMI; CODE HEART - EKG: Inferior wall DE - Agricultural Engineering Technologist with Dr. Madrid --> L Main: Patent, LAD proximal 40%, LCx/OM: OM 60%, RCA: Ostial 80%, Mid 100%, PDA 80%, EF: 40%, Inferior akinetic - ECHO: - Serial EKGs, lipid panel - elevated LDL - ASA, Brilinta (x 1 year), Cozaar, Metoprolol, Crestor - Integrilin drip x 16 hrs, 1/2 NS 50cc x 12 hours Pulm: - No acute issues Endo: A: T2DM - Accuchecks - Carb Consistent / HHD - ISS- low - HGA1C - 8.2 - ASA, Brilinta, Cozaar, Metoprolol, Crestor Prophylaxis: - Pepcid BID - SCDs, ASA, Brilinta, Hep Q8 Disposition: PATIENT TRANSFERRED TO TELEMETRY. DW Dr. Martinez, Kira Rasheed DO, PGY-1 <Mu Martinez - Last Filed: 12/25/17 14:17> CCU Objective - Vital Signs / Intake & Output Vital Signs (Last 4 hours): Vital Signs Temp Pulse Resp BP Pulse Ox 12/25/17 14:00 105 H 19 104/68 12/25/17 13:00 106 H 20 103/61 12/25/17 12:00 99.2 F 99 H 21 98/60 L 99 12/25/17 11:00 103 H 22 128/79 98 Intake and Output (Last 8hrs): Intake & Output 12/24/17 12/25/17 12/25/17 22:59 06:59 14:59 Intake Total 787 848 381 Output Total 600 400 500 Balance 187 448 -119 Weight 153 lb 7.068 oz 153 lb 7.068 oz 152 lb 1.903 oz Intake: Intake, IV Amount 427 488 61 Left Antecubital 200 Right Antecubital 77 88 11 Right Antecubital side- 150 400 50 port Oral 360 360 320 Output: Urine 600 400 500 Urine, Voided 600 400 500 Other: # Voids Urine, Voided 1 1 - Medications Active Medications: Active Medications Generic Name Dose Route Start Last Admin Trade Name Freq PRN Reason Stop Dose Admin Aspirin 81 mg 12/25/17 10:00 12/25/17 10:28 Aspirin Chewable PO 81 mg DAILY ELIAS Administration Famotidine 20 mg 12/24/17 18:00 12/25/17 10:28 Pepcid PO 20 mg BID ELIAS Administration Heparin Sodium (Porcine) 5,000 units 12/25/17 14:00 Heparin SC Q8 ELIAS Insulin Human Regular 0 unit 12/25/17 08:15 12/25/17 11:53 Novolin R SC 10 u ACHS ELIAS Administration Protocol Losartan Potassium 25 mg 12/25/17 10:00 12/25/17 10:29 Cozaar PO 25 mg DAILY ELIAS Administration Metoprolol Succinate 12.5 mg 12/24/17 18:00 12/25/17 10:28 Toprol Xl PO 12.5 mg BID ELIAS Administration Ondansetron HCl 4 mg 12/24/17 14:58 Zofran Inj IVP Q6H PRN Nausea/Vomiting Rosuvastatin Calcium 40 mg 12/24/17 22:00 12/24/17 21:10 Crestor PO 40 mg HS ELIAS Administration Ticagrelor 90 mg 12/25/17 10:00 12/25/17 10:28 Brilinta PO 90 mg BID ELIAS Administration - Patient Studies Lab Studies: Lab Studies 12/25/17 12/25/17 12/25/17 Range/Units 11:30 10:24 10:24 WBC 18.4 H (4.8-10.8) K/uL RBC 4.07 L (4.40-5.90) Mil/uL Hgb 12.4 (12.0-18.0) g/dL Hct 35.5 (35.0-51.0) % MCV 87.3 (80.0-94.0) fL MCH 30.5 (27.0-31.0) pg MCHC 34.9 (33.0-37.0) g/dL RDW 14.6 H (11.5-14.5) % Plt Count 195 (130-400) K/uL MPV 11.2 (7.2-11.7) fL Neut % (Auto) 84.4 H (50.0-75.0) % Lymph % (Auto) 6.9 L (20.0-40.0) % Cedar % (Auto) 8.4 (0.0-10.0) % Eos % (Auto) 0.0 (0.0-4.0) % Baso % (Auto) 0.3 (0.0-2.0) % Neut # (Auto) 15.5 H (1.8-7.0) K/uL Lymph # (Auto) 1.3 (1.0-4.3) K/uL Cedar # (Auto) 1.5 H (0.0-0.8) K/uL Eos # (Auto) 0.0 (0.0-0.7) K/uL Baso # (Auto) 0.0 (0.0-0.2) K/uL Neutrophils % (Manual) (50-75) % Band Neutrophils % (0-2) % Lymphocytes % (Manual) (20-40) % Monocytes % (Manual) (0-10) % Platelet Estimate (NORMAL) Large Platelets RBC Morphology PT (9.7-12.2) SECONDS INR APTT (21-34) SECONDS Sodium (132-148) mmol/L Potassium (3.6-5.2) mmol/L Chloride (98-107) mmol/L Carbon Dioxide (22-30) mmol/L Anion Gap (10-20) BUN (9-20) mg/dL Creatinine (0.8-1.5) mg/dL Est GFR ( Amer) Est GFR (Non-Af Amer) POC Glucose (mg/dL) 353 H (65-110) mg/dL Random Glucose (75-110) mg/dL Hemoglobin A1c (4.2-6.5) % Calcium (8.6-10.4) mg/dl Phosphorus (2.5-4.5) mg/dL Magnesium (1.6-2.3) mg/dL Total Bilirubin (0.2-1.3) mg/dL AST (17-59) U/L ALT (21-72) U/L Alkaline Phosphatase (38-126) U/L Total Creatine Kinase 1138 H (55-170) U/L CK-MB (Mass) 30.9 H (0.0-3.38) ng/mL Troponin I 98.4000 H* (0.00-0.120) ng/mL Total Protein (6.3-8.3) g/dL Albumin (3.5-5.0) g/dL Globulin (2.2-3.9) gm/dL Albumin/Globulin Ratio (1.0-2.1) Triglycerides (0-149) mg/dL Cholesterol (0-199) mg/dL LDL Cholesterol Direct (0-129) mg/dL HDL Cholesterol (30-70) mg/dL Blood Type Antibody Screen 12/25/17 12/25/17 12/25/17 Range/Units 07:23 06:28 06:28 WBC 20.5 H (4.8-10.8) K/uL RBC 4.25 L (4.40-5.90) Mil/uL Hgb 13.1 D (12.0-18.0) g/dL Hct 37.3 (35.0-51.0) % MCV 87.6 (80.0-94.0) fL MCH 30.9 (27.0-31.0) pg MCHC 35.3 (33.0-37.0) g/dL RDW 14.8 H (11.5-14.5) % Plt Count 219 (130-400) K/uL MPV 11.6 (7.2-11.7) fL Neut % (Auto) 83.3 H (50.0-75.0) % Lymph % (Auto) 6.0 L (20.0-40.0) % Cedar % (Auto) 10.5 H (0.0-10.0) % Eos % (Auto) 0.0 (0.0-4.0) % Baso % (Auto) 0.2 (0.0-2.0) % Neut # (Auto) 17.1 H (1.8-7.0) K/uL Lymph # (Auto) 1.2 (1.0-4.3) K/uL Cedar # (Auto) 2.2 H (0.0-0.8) K/uL Eos # (Auto) 0.0 (0.0-0.7) K/uL Baso # (Auto) 0.0 (0.0-0.2) K/uL Neutrophils % (Manual) 62 (50-75) % Band Neutrophils % 27 H* (0-2) % Lymphocytes % (Manual) 5 L (20-40) % Monocytes % (Manual) 6 (0-10) % Platelet Estimate Normal (NORMAL) Large Platelets Present RBC Morphology Normal PT (9.7-12.2) SECONDS INR APTT (21-34) SECONDS Sodium (132-148) mmol/L Potassium (3.6-5.2) mmol/L Chloride (98-107) mmol/L Carbon Dioxide (22-30) mmol/L Anion Gap (10-20) BUN (9-20) mg/dL Creatinine (0.8-1.5) mg/dL Est GFR ( Amer) Est GFR (Non-Af Amer) POC Glucose (mg/dL) 318 H (65-110) mg/dL Random Glucose (75-110) mg/dL Hemoglobin A1c 8.2 H (4.2-6.5) % Calcium (8.6-10.4) mg/dl Phosphorus (2.5-4.5) mg/dL Magnesium (1.6-2.3) mg/dL Total Bilirubin (0.2-1.3) mg/dL AST (17-59) U/L ALT (21-72) U/L Alkaline Phosphatase (38-126) U/L Total Creatine Kinase (55-170) U/L CK-MB (Mass) (0.0-3.38) ng/mL Troponin I (0.00-0.120) ng/mL Total Protein (6.3-8.3) g/dL Albumin (3.5-5.0) g/dL Globulin (2.2-3.9) gm/dL Albumin/Globulin Ratio (1.0-2.1) Triglycerides (0-149) mg/dL Cholesterol (0-199) mg/dL LDL Cholesterol Direct (0-129) mg/dL HDL Cholesterol (30-70) mg/dL Blood Type Antibody Screen 12/25/17 12/24/17 12/24/17 Range/Units 06:27 21:09 16:54 WBC (4.8-10.8) K/uL RBC (4.40-5.90) Mil/uL Hgb (12.0-18.0) g/dL Hct (35.0-51.0) % MCV (80.0-94.0) fL MCH (27.0-31.0) pg MCHC (33.0-37.0) g/dL RDW (11.5-14.5) % Plt Count (130-400) K/uL MPV (7.2-11.7) fL Neut % (Auto) (50.0-75.0) % Lymph % (Auto) (20.0-40.0) % Cedar % (Auto) (0.0-10.0) % Eos % (Auto) (0.0-4.0) % Baso % (Auto) (0.0-2.0) % Neut # (Auto) (1.8-7.0) K/uL Lymph # (Auto) (1.0-4.3) K/uL Cedar # (Auto) (0.0-0.8) K/uL Eos # (Auto) (0.0-0.7) K/uL Baso # (Auto) (0.0-0.2) K/uL Neutrophils % (Manual) (50-75) % Band Neutrophils % (0-2) % Lymphocytes % (Manual) (20-40) % Monocytes % (Manual) (0-10) % Platelet Estimate (NORMAL) Large Platelets RBC Morphology PT (9.7-12.2) SECONDS INR APTT (21-34) SECONDS Sodium 133 (132-148) mmol/L Potassium 4.3 (3.6-5.2) mmol/L Chloride 96 L (98-107) mmol/L Carbon Dioxide 21 L (22-30) mmol/L Anion Gap 20 (10-20) BUN 15 (9-20) mg/dL Creatinine 1.1 (0.8-1.5) mg/dL Est GFR ( Amer) > 60 Est GFR (Non-Af Amer) > 60 POC Glucose (mg/dL) 340 H 254 H (65-110) mg/dL Random Glucose 279 H (75-110) mg/dL Hemoglobin A1c (4.2-6.5) % Calcium 8.8 (8.6-10.4) mg/dl Phosphorus 3.4 (2.5-4.5) mg/dL Magnesium 1.7 (1.6-2.3) mg/dL Total Bilirubin 1.6 H (0.2-1.3) mg/dL AST 238 H D (17-59) U/L ALT 66 (21-72) U/L Alkaline Phosphatase 83 (38-126) U/L Total Creatine Kinase (55-170) U/L CK-MB (Mass) (0.0-3.38) ng/mL Troponin I (0.00-0.120) ng/mL Total Protein 7.2 (6.3-8.3) g/dL Albumin 4.0 (3.5-5.0) g/dL Globulin 3.2 (2.2-3.9) gm/dL Albumin/Globulin Ratio 1.2 (1.0-2.1) Triglycerides (0-149) mg/dL Cholesterol (0-199) mg/dL LDL Cholesterol Direct (0-129) mg/dL HDL Cholesterol (30-70) mg/dL Blood Type Antibody Screen 12/24/17 12/24/17 12/24/17 Range/Units 14:27 14:27 14:27 WBC (4.8-10.8) K/uL RBC (4.40-5.90) Mil/uL Hgb (12.0-18.0) g/dL Hct (35.0-51.0) % MCV (80.0-94.0) fL MCH (27.0-31.0) pg MCHC (33.0-37.0) g/dL RDW (11.5-14.5) % Plt Count (130-400) K/uL MPV (7.2-11.7) fL Neut % (Auto) (50.0-75.0) % Lymph % (Auto) (20.0-40.0) % Cedar % (Auto) (0.0-10.0) % Eos % (Auto) (0.0-4.0) % Baso % (Auto) (0.0-2.0) % Neut # (Auto) (1.8-7.0) K/uL Lymph # (Auto) (1.0-4.3) K/uL Cedar # (Auto) (0.0-0.8) K/uL Eos # (Auto) (0.0-0.7) K/uL Baso # (Auto) (0.0-0.2) K/uL Neutrophils % (Manual) (50-75) % Band Neutrophils % (0-2) % Lymphocytes % (Manual) (20-40) % Monocytes % (Manual) (0-10) % Platelet Estimate (NORMAL) Large Platelets RBC Morphology PT 11.9 (9.7-12.2) SECONDS INR 1.1 APTT 36 H (21-34) SECONDS Sodium 139 (132-148) mmol/L Potassium 4.4 (3.6-5.2) mmol/L Chloride 99 (98-107) mmol/L Carbon Dioxide 25 (22-30) mmol/L Anion Gap 19 (10-20) BUN 13 (9-20) mg/dL Creatinine 1.0 (0.8-1.5) mg/dL Est GFR ( Amer) > 60 Est GFR (Non-Af Amer) > 60 POC Glucose (mg/dL) (65-110) mg/dL Random Glucose 260 H (75-110) mg/dL Hemoglobin A1c (4.2-6.5) % Calcium 9.9 (8.6-10.4) mg/dl Phosphorus (2.5-4.5) mg/dL Magnesium (1.6-2.3) mg/dL Total Bilirubin 1.1 (0.2-1.3) mg/dL AST 356 H (17-59) U/L ALT 89 H (21-72) U/L Alkaline Phosphatase 110 (38-126) U/L Total Creatine Kinase 2370 H (55-170) U/L CK-MB (Mass) 91.3 H (0.0-3.38) ng/mL Troponin I 89.3000 H* (0.00-0.120) ng/mL Total Protein 8.8 H (6.3-8.3) g/dL Albumin 4.8 (3.5-5.0) g/dL Globulin 4.0 H (2.2-3.9) gm/dL Albumin/Globulin Ratio 1.2 (1.0-2.1) Triglycerides 143 (0-149) mg/dL Cholesterol 199 (0-199) mg/dL LDL Cholesterol Direct 145 H (0-129) mg/dL HDL Cholesterol 42 (30-70) mg/dL Blood Type O POSITIVE Antibody Screen Negative 12/24/17 Range/Units 14:27 WBC 13.9 H (4.8-10.8) K/uL RBC 5.05 (4.40-5.90) Mil/uL Hgb 15.5 (12.0-18.0) g/dL Hct 43.6 (35.0-51.0) % MCV 86.3 (80.0-94.0) fL MCH 30.8 (27.0-31.0) pg MCHC 35.6 (33.0-37.0) g/dL RDW 14.7 H (11.5-14.5) % Plt Count 205 (130-400) K/uL MPV 10.8 (7.2-11.7) fL Neut % (Auto) 80.6 H (50.0-75.0) % Lymph % (Auto) 10.3 L (20.0-40.0) % [place] % (Auto) 8.5 (0.0-10.0) % Eos % (Auto) 0.2 (0.0-4.0) % Baso % (Auto) 0.4 (0.0-2.0) % Neut # (Auto) 11.2 H (1.8-7.0) K/uL Lymph # (Auto) 1.4 (1.0-4.3) K/uL [place] # (Auto) 1.2 H (0.0-0.8) K/uL Eos # (Auto) 0.0 (0.0-0.7) K/uL Baso # (Auto) 0.1 (0.0-0.2) K/uL Neutrophils % (Manual) (50-75) % Band Neutrophils % (0-2) % Lymphocytes % (Manual) (20-40) % Monocytes % (Manual) (0-10) % Platelet Estimate (NORMAL) Large Platelets RBC Morphology PT (9.7-12.2) SECONDS INR APTT (21-34) SECONDS Sodium (132-148) mmol/L Potassium (3.6-5.2) mmol/L Chloride (98-107) mmol/L Carbon Dioxide (22-30) mmol/L Anion Gap (10-20) BUN (9-20) mg/dL Creatinine (0.8-1.5) mg/dL Est GFR ( Amer) Est GFR (Non-Af Amer) POC Glucose (mg/dL) (65-110) mg/dL Random Glucose (75-110) mg/dL Hemoglobin A1c (4.2-6.5) % Calcium (8.6-10.4) mg/dl Phosphorus (2.5-4.5) mg/dL Magnesium (1.6-2.3) mg/dL Total Bilirubin (0.2-1.3) mg/dL AST (17-59) U/L ALT (21-72) U/L Alkaline Phosphatase (38-126) U/L Total Creatine Kinase (55-170) U/L CK-MB (Mass) (0.0-3.38) ng/mL Troponin I (0.00-0.120) ng/mL Total Protein (6.3-8.3) g/dL Albumin (3.5-5.0) g/dL Globulin (2.2-3.9) gm/dL Albumin/Globulin Ratio (1.0-2.1) Triglycerides (0-149) mg/dL Cholesterol (0-199) mg/dL LDL Cholesterol Direct (0-129) mg/dL HDL Cholesterol (30-70) mg/dL Blood Type Antibody Screen Laboratory Results - last 24 hr 12/24/17 12/24/17 12/24/17 14:27 14:27 14:27 WBC 13.9 H RBC 5.05 Hgb 15.5 Hct 43.6 MCV 86.3 MCH 30.8 MCHC 35.6 RDW 14.7 H Plt Count 205 MPV 10.8 Neut % (Auto) 80.6 H Lymph % (Auto) 10.3 L [place] % (Auto) 8.5 Eos % (Auto) 0.2 Baso % (Auto) 0.4 Neut # (Auto) 11.2 H Lymph # (Auto) 1.4 [place] # (Auto) 1.2 H Eos # (Auto) 0.0 Baso # (Auto) 0.1 Neutrophils % (Manual) Band Neutrophils % Lymphocytes % (Manual) Monocytes % (Manual) Platelet Estimate Large Platelets RBC Morphology PT 11.9 INR 1.1 APTT 36 H Sodium 139 Potassium 4.4 Chloride 99 Carbon Dioxide 25 Anion Gap 19 BUN 13 Creatinine 1.0 Est GFR ( Amer) > 60 Est GFR (Non-Af Amer) > 60 POC Glucose (mg/dL) Random Glucose 260 H Hemoglobin A1c Calcium 9.9 Phosphorus Magnesium Total Bilirubin 1.1 AST 356 H ALT 89 H Alkaline Phosphatase 110 Total Creatine Kinase 2370 H CK-MB (Mass) 91.3 H Troponin I 89.3000 H* Total Protein 8.8 H Albumin 4.8 Globulin 4.0 H Albumin/Globulin Ratio 1.2 Triglycerides 143 Cholesterol 199 LDL Cholesterol Direct 145 H HDL Cholesterol 42 Blood Type Antibody Screen 12/24/17 12/24/17 12/24/17 14:27 16:54 21:09 WBC RBC Hgb Hct MCV MCH MCHC RDW Plt Count MPV Neut % (Auto) Lymph % (Auto) [place] % (Auto) Eos % (Auto) Baso % (Auto) Neut # (Auto) Lymph # (Auto) [place] # (Auto) Eos # (Auto) Baso # (Auto) Neutrophils % (Manual) Band Neutrophils % Lymphocytes % (Manual) Monocytes % (Manual) Platelet Estimate Large Platelets RBC Morphology PT INR APTT Sodium Potassium Chloride Carbon Dioxide Anion Gap BUN Creatinine Est GFR ( Amer) Est GFR (Non-Af Amer) POC Glucose (mg/dL) 254 H 340 H Random Glucose Hemoglobin A1c Calcium Phosphorus Magnesium Total Bilirubin AST ALT Alkaline Phosphatase Total Creatine Kinase CK-MB (Mass) Troponin I Total Protein Albumin Globulin Albumin/Globulin Ratio Triglycerides Cholesterol LDL Cholesterol Direct HDL Cholesterol Blood Type O POSITIVE Antibody Screen Negative 12/25/17 12/25/17 12/25/17 06:27 06:28 06:28 WBC 20.5 H RBC 4.25 L Hgb 13.1 D Hct 37.3 MCV 87.6 MCH 30.9 MCHC 35.3 RDW 14.8 H Plt Count 219 MPV 11.6 Neut % (Auto) 83.3 H Lymph % (Auto) 6.0 L [place] % (Auto) 10.5 H Eos % (Auto) 0.0 Baso % (Auto) 0.2 Neut # (Auto) 17.1 H Lymph # (Auto) 1.2 [place] # (Auto) 2.2 H Eos # (Auto) 0.0 Baso # (Auto) 0.0 Neutrophils % (Manual) 62 Band Neutrophils % 27 H* Lymphocytes % (Manual) 5 L Monocytes % (Manual) 6 Platelet Estimate Normal Large Platelets Present RBC Morphology Normal PT INR APTT Sodium 133 Potassium 4.3 Chloride 96 L Carbon Dioxide 21 L Anion Gap 20 BUN 15 Creatinine 1.1 Est GFR ( Amer) > 60 Est GFR (Non-Af Amer) > 60 POC Glucose (mg/dL) Random Glucose 279 H Hemoglobin A1c 8.2 H Calcium 8.8 Phosphorus 3.4 Magnesium 1.7 Total Bilirubin 1.6 H AST 238 H D ALT 66 Alkaline Phosphatase 83 Total Creatine Kinase CK-MB (Mass) Troponin I Total Protein 7.2 Albumin 4.0 Globulin 3.2 Albumin/Globulin Ratio 1.2 Triglycerides Cholesterol LDL Cholesterol Direct HDL Cholesterol Blood Type Antibody Screen 12/25/17 12/25/17 12/25/17 07:23 10:24 10:24 WBC 18.4 H RBC 4.07 L Hgb 12.4 Hct 35.5 MCV 87.3 MCH 30.5 MCHC 34.9 RDW 14.6 H Plt Count 195 MPV 11.2 Neut % (Auto) 84.4 H Lymph % (Auto) 6.9 L [place] % (Auto) 8.4 Eos % (Auto) 0.0 Baso % (Auto) 0.3 Neut # (Auto) 15.5 H Lymph # (Auto) 1.3 [place] # (Auto) 1.5 H Eos # (Auto) 0.0 Baso # (Auto) 0.0 Neutrophils % (Manual) Band Neutrophils % Lymphocytes % (Manual) Monocytes % (Manual) Platelet Estimate Large Platelets RBC Morphology PT INR APTT Sodium Potassium Chloride Carbon Dioxide Anion Gap BUN Creatinine Est GFR ( Amer) Est GFR (Non-Af Amer) POC Glucose (mg/dL) 318 H Random Glucose Hemoglobin A1c Calcium Phosphorus Magnesium Total Bilirubin AST ALT Alkaline Phosphatase Total Creatine Kinase 1138 H CK-MB (Mass) 30.9 H Troponin I 98.4000 H* Total Protein Albumin Globulin Albumin/Globulin Ratio Triglycerides Cholesterol LDL Cholesterol Direct HDL Cholesterol Blood Type Antibody Screen 12/25/17 11:30 WBC RBC Hgb Hct MCV MCH MCHC RDW Plt Count MPV Neut % (Auto) Lymph % (Auto) [place] % (Auto) Eos % (Auto) Baso % (Auto) Neut # (Auto) Lymph # (Auto) [place] # (Auto) Eos # (Auto) Baso # (Auto) Neutrophils % (Manual) Band Neutrophils % Lymphocytes % (Manual) Monocytes % (Manual) Platelet Estimate Large Platelets RBC Morphology PT INR APTT Sodium Potassium Chloride Carbon Dioxide Anion Gap BUN Creatinine Est GFR ( Amer) Est GFR (Non-Af Amer) POC Glucose (mg/dL) 353 H Random Glucose Hemoglobin A1c Calcium Phosphorus Magnesium Total Bilirubin AST ALT Alkaline Phosphatase Total Creatine Kinase CK-MB (Mass) Troponin I Total Protein Albumin Globulin Albumin/Globulin Ratio Triglycerides Cholesterol LDL Cholesterol Direct HDL Cholesterol Blood Type Antibody Screen EKG/Cardiology Studies: Cardiology / EKG Studies 12/24/17 14:10 ELECTROCARDIOGRAM Stat Comment: Mode Of Transportation: BED Reason For Exam: chest pain 12/24/17 14:17 ELECTROCARDIOGRAM Stat Comment: Mode Of Transportation: BED Reason For Exam: chest pain 12/25/17 09:00 EKG [ELECTROCARDIOGRAM] DAILY Comment: Mode Of Transportation: Reason For Exam: STEMI 12/26/17 09:00 EKG [ELECTROCARDIOGRAM] DAILY Comment: Mode Of Transportation: Reason For Exam: STEMI Critical Care Progress Note - Nutrition Nutrition: Nutrition Category Date Time Status Heart Healthy Diet [DIET] Diets 12/24/17 Dinner Active Attending/Attestation - Attestation I have personally seen and examined this patient.: Yes I have fully participated in the care of the patient.: Yes I have reviewed all pertinent clinical information: Yes Notes (Text): 12/25/17 14:17 Today: Monday, December 25, 2017 The Patient was seen and examined at the bedside, Medical records reviewed, and management issues were discussed and formulated with the house staff. I have reviewed all the relevant clinical, laboratory, hemodynamic, radiographic data and medications Events reviewed Patient doing well today, chest pain free Follow up ECHO Agree with above resident's assessment and treatment plans of care as transcribed in Dr. Rasheed note.
--- NOTE | 2017-12-25 11:56 | CP.PCM.HP ---
History of Present Illness - History of Present Illness History of Present Illness: This is a 62 year old [place] male, Prem speaking, with past history of of DM type 2 on metformin, who presented to the hospital with chest pain for 2 days prior to cath. The patient arrived here from [place] in October. He went to see Dr. Johnathan Santoro 2 days ago, and received some medications that he cannot recall and never filled. The Patient does not have family here, he is staying with his friend. 2 days ago, the patient had sharp chest pain which was bearable, however over the course of 2 days it made him dizzy, weak, and sweaty. In the ED, the patient was code heart with ST depressions in the inferior wall leads. Cardiac Cath revealed RCA: Ostial 80%, Mid 100%, PDA 80%, EF: 40%, Inferior akinetic - 4 stents placed. Denied fever, chills, headache, chest pain, SOB, abdominal pain , n/v/d/c, or urinary symptoms. PMHx: DM type 2 PSHx: Denies Meds: Metformin 1000mg BID All: NKDA SHx: Denied any tobacco, ETOH or illicit drug use. Independent in all ADL and IADL FHx: denies Present on Admission - Present on Admission Any Indicators Present on Admission: Yes History of DVT/PE: No History of Uncontrolled Diabetes: Yes Urinary Catheter: No Decubitus Ulcer Present: No Past Patient History - Infectious Disease Hx of Infectious Diseases: None - Past Medical History & Family History Past Medical History?: Yes - Past Social History Smoking Status: Never Smoked - ENDOCRINE/METABOLIC Hx Diabetes Mellitus Type 2: Yes - MUSCULOSKELETAL/RHEUMATOLOGICAL Hx Falls: No - PSYCHIATRIC Hx Substance Use: No - ANESTHESIA Hx Anesthesia: No Hx Anesthesia Reactions: No Hx Malignant Hyperthermia: No Has any member of the family had a problem w/ anesthesia?: No Meds Allergies/Adverse Reactions: Allergies Allergy/AdvReac Type Severity Reaction Status Date / Time No Known Allergies Allergy Verified 12/24/17 19:39 Physical Exam - Head Exam Additional comments: please refer to critical care note for physical exam Results - Vital Signs Recent Vital Signs: Last Vital Signs Temp 98.7 F 12/25/17 08:00 Pulse 103 H 12/25/17 11:00 Resp 22 12/25/17 11:00 BP 128/79 12/25/17 11:00 Pulse Ox 98 12/25/17 11:00 - Labs Result Diagrams: 12/25/17 10:24 12/25/17 06:27 Labs: Laboratory Results - last 24 hr 12/24/17 12/24/17 12/24/17 14:27 14:27 14:27 WBC 13.9 H RBC 5.05 Hgb 15.5 Hct 43.6 MCV 86.3 MCH 30.8 MCHC 35.6 RDW 14.7 H Plt Count 205 MPV 10.8 Neut % (Auto) 80.6 H Lymph % (Auto) 10.3 L [place] % (Auto) 8.5 Eos % (Auto) 0.2 Baso % (Auto) 0.4 Neut # (Auto) 11.2 H Lymph # (Auto) 1.4 [place] # (Auto) 1.2 H Eos # (Auto) 0.0 Baso # (Auto) 0.1 Neutrophils % (Manual) Band Neutrophils % Lymphocytes % (Manual) Monocytes % (Manual) Platelet Estimate Large Platelets RBC Morphology PT 11.9 INR 1.1 APTT 36 H Sodium 139 Potassium 4.4 Chloride 99 Carbon Dioxide 25 Anion Gap 19 BUN 13 Creatinine 1.0 Est GFR ( Amer) > 60 Est GFR (Non-Af Amer) > 60 POC Glucose (mg/dL) Random Glucose 260 H Hemoglobin A1c Calcium 9.9 Phosphorus Magnesium Total Bilirubin 1.1 AST 356 H ALT 89 H Alkaline Phosphatase 110 Total Creatine Kinase 2370 H CK-MB (Mass) 91.3 H Troponin I 89.3000 H* Total Protein 8.8 H Albumin 4.8 Globulin 4.0 H Albumin/Globulin Ratio 1.2 Triglycerides 143 Cholesterol 199 LDL Cholesterol Direct 145 H HDL Cholesterol 42 Blood Type Antibody Screen 12/24/17 12/24/17 12/24/17 14:27 16:54 21:09 WBC RBC Hgb Hct MCV MCH MCHC RDW Plt Count MPV Neut % (Auto) Lymph % (Auto) [place] % (Auto) Eos % (Auto) Baso % (Auto) Neut # (Auto) Lymph # (Auto) [place] # (Auto) Eos # (Auto) Baso # (Auto) Neutrophils % (Manual) Band Neutrophils % Lymphocytes % (Manual) Monocytes % (Manual) Platelet Estimate Large Platelets RBC Morphology PT INR APTT Sodium Potassium Chloride Carbon Dioxide Anion Gap BUN Creatinine Est GFR ( Amer) Est GFR (Non-Af Amer) POC Glucose (mg/dL) 254 H 340 H Random Glucose Hemoglobin A1c Calcium Phosphorus Magnesium Total Bilirubin AST ALT Alkaline Phosphatase Total Creatine Kinase CK-MB (Mass) Troponin I Total Protein Albumin Globulin Albumin/Globulin Ratio Triglycerides Cholesterol LDL Cholesterol Direct HDL Cholesterol Blood Type O POSITIVE Antibody Screen Negative 12/25/17 12/25/17 12/25/17 06:27 06:28 06:28 WBC 20.5 H RBC 4.25 L Hgb 13.1 D Hct 37.3 MCV 87.6 MCH 30.9 MCHC 35.3 RDW 14.8 H Plt Count 219 MPV 11.6 Neut % (Auto) 83.3 H Lymph % (Auto) 6.0 L [place] % (Auto) 10.5 H Eos % (Auto) 0.0 Baso % (Auto) 0.2 Neut # (Auto) 17.1 H Lymph # (Auto) 1.2 [place] # (Auto) 2.2 H Eos # (Auto) 0.0 Baso # (Auto) 0.0 Neutrophils % (Manual) 62 Band Neutrophils % 27 H* Lymphocytes % (Manual) 5 L Monocytes % (Manual) 6 Platelet Estimate Normal Large Platelets Present RBC Morphology Normal PT INR APTT Sodium 133 Potassium 4.3 Chloride 96 L Carbon Dioxide 21 L Anion Gap 20 BUN 15 Creatinine 1.1 Est GFR ( Amer) > 60 Est GFR (Non-Af Amer) > 60 POC Glucose (mg/dL) Random Glucose 279 H Hemoglobin A1c 8.2 H Calcium 8.8 Phosphorus 3.4 Magnesium 1.7 Total Bilirubin 1.6 H AST 238 H D ALT 66 Alkaline Phosphatase 83 Total Creatine Kinase CK-MB (Mass) Troponin I Total Protein 7.2 Albumin 4.0 Globulin 3.2 Albumin/Globulin Ratio 1.2 Triglycerides Cholesterol LDL Cholesterol Direct HDL Cholesterol Blood Type Antibody Screen 12/25/17 12/25/17 12/25/17 07:23 10:24 10:24 WBC 18.4 H RBC 4.07 L Hgb 12.4 Hct 35.5 MCV 87.3 MCH 30.5 MCHC 34.9 RDW 14.6 H Plt Count 195 MPV 11.2 Neut % (Auto) 84.4 H Lymph % (Auto) 6.9 L [place] % (Auto) 8.4 Eos % (Auto) 0.0 Baso % (Auto) 0.3 Neut # (Auto) 15.5 H Lymph # (Auto) 1.3 [place] # (Auto) 1.5 H Eos # (Auto) 0.0 Baso # (Auto) 0.0 Neutrophils % (Manual) Band Neutrophils % Lymphocytes % (Manual) Monocytes % (Manual) Platelet Estimate Large Platelets RBC Morphology PT INR APTT Sodium Potassium Chloride Carbon Dioxide Anion Gap BUN Creatinine Est GFR ( Amer) Est GFR (Non-Af Amer) POC Glucose (mg/dL) 318 H Random Glucose Hemoglobin A1c Calcium Phosphorus Magnesium Total Bilirubin AST ALT Alkaline Phosphatase Total Creatine Kinase 1138 H CK-MB (Mass) 30.9 H Troponin I 98.4000 H* Total Protein Albumin Globulin Albumin/Globulin Ratio Triglycerides Cholesterol LDL Cholesterol Direct HDL Cholesterol Blood Type Antibody Screen 12/25/17 11:30 WBC RBC Hgb Hct MCV MCH MCHC RDW Plt Count MPV Neut % (Auto) Lymph % (Auto) [place] % (Auto) Eos % (Auto) Baso % (Auto) Neut # (Auto) Lymph # (Auto) [place] # (Auto) Eos # (Auto) Baso # (Auto) Neutrophils % (Manual) Band Neutrophils % Lymphocytes % (Manual) Monocytes % (Manual) Platelet Estimate Large Platelets RBC Morphology PT INR APTT Sodium Potassium Chloride Carbon Dioxide Anion Gap BUN Creatinine Est GFR ( Amer) Est GFR (Non-Af Amer) POC Glucose (mg/dL) 353 H Random Glucose Hemoglobin A1c Calcium Phosphorus Magnesium Total Bilirubin AST ALT Alkaline Phosphatase Total Creatine Kinase CK-MB (Mass) Troponin I Total Protein Albumin Globulin Albumin/Globulin Ratio Triglycerides Cholesterol LDL Cholesterol Direct HDL Cholesterol Blood Type Antibody Screen Assessment & Plan - Assessment and Plan (Free Text) Assessment: 62yo M admitted for STEMI s/p cardiac cath and stenting STEMI; resolved -cath revealed RCA: Ostial 80%, Mid 100%, PDA 80%, EF: 40%, Inferior akinetic - 4 stents placed -statin, ARB, Aspirin 81mg for life -brillanta 90mg daily for 1 year, and beta carla -f/u with cardiology as outpatient within a week; will need repeat echo in 3 months to assess EF DM2; uncontrolled -c/w metformin 1000mg PO BID -consider adding second agent such as januvia as outpatient -patient, if plans on staying, will need to f/u with outpatient clinic here for referrals HLD -c/w high dose statin until meets goal s/p STEMI -recheck in 3 months Proph -SCD -OOB as tolerated -GI prophylaxis not indicated Decision To Admit - Pt Status Changed To: Hospital Disposition Of: Inpatient - Admit Certification Admit to Inpatient:: After my assessment, the patient will require hospitalization for at least two midnights. This is because of the severity of symptoms shown, intensity of services needed, and/or the medical risk in this patient being treated as an outpatient. - InPatient: Physician Admission Certification:: STEMI - . Bed Request Type: Telemetry Admitting Physician: Angel Palmer
--- NOTE | 2017-12-25 17:46 | CP.PCM.PN ---
Subjective - Date & Time of Evaluation Date of Evaluation: 12/25/17 Time of Evaluation: 14:00 - Subjective Subjective: Patient seen and evaluated Comfortable ECHO: Normal LV function and EF Continue ASA, Statins, B blockers, LEIGH I Changed Brilinta to Plavix 75 mg daily so that patient can afford to buy his medications If patient is stable can be discharged in am Objective - Vital Signs/Intake and Output Vital Signs (last 24 hours): Temp Pulse Resp BP Pulse Ox 98.9 F 105 H 20 94/59 L 99 12/25/17 16:00 12/25/17 16:00 12/25/17 16:00 12/25/17 16:00 12/25/17 16:00 Intake and Output: 12/25/17 12/25/17 06:59 18:59 Intake Total 1452 381 Output Total 700 500 Balance 752 -119 - Medications Medications: Current Medications Aspirin (Aspirin Chewable) 81 mg PO DAILY [facility] Last Admin: 12/25/17 10:28 Dose: 81 mg Clopidogrel Bisulfate (Plavix) 75 mg PO DAILY [facility] Famotidine (Pepcid) 20 mg PO BID [facility] Last Admin: 12/25/17 10:28 Dose: 20 mg Heparin Sodium (Porcine) (Heparin) 5,000 units SC Q8 [facility] Last Admin: 12/25/17 14:38 Dose: 5,000 units Insulin Human Regular (Novolin R) 0 unit SC ACHS [facility] PRN Reason: Protocol Last Admin: 12/25/17 11:53 Dose: 10 u Losartan Potassium (Cozaar) 25 mg PO DAILY [facility] Last Admin: 12/25/17 10:29 Dose: 25 mg Metoprolol Succinate (Toprol Xl) 12.5 mg PO BID [facility] Last Admin: 12/25/17 10:28 Dose: 12.5 mg Ondansetron HCl (Zofran Inj) 4 mg IVP Q6H PRN PRN Reason: Nausea/Vomiting Rosuvastatin Calcium (Crestor) 40 mg PO HS [facility] Last Admin: 12/24/17 21:10 Dose: 40 mg - Labs Labs: 12/25/17 10:24 12/25/17 06:27 PT 11.9 SECONDS (9.7-12.2) 12/24/17 14:27 INR 1.1 12/24/17 14:27 APTT 36 SECONDS (21-34) H 12/24/17 14:27
[2017-12-26 06:21] LABS: BASO # 0.1 K/uL (0.0-0.2); BASO % 0.4 % (0.0-2.0); EOS % 0.2 % (0.0-4.0); HEMOGLOBIN 11.8 g/dL (12.0-18.0); LYMPH # 1.5 K/uL (1.0-4.3); MEAN CELL VOLUME 86.5 fL (80.0-94.0); MEAN CORPUSCULAR HGB CONC 35.8 g/dL (33.0-37.0); MEAN PLATELET VOLUME 11.8 fL (7.2-11.7); MONO # 1.3 K/uL (0.0-0.8); MONO % 9.6 % (0.0-10.0); NEUT # 10.7 K/uL (1.8-7.0); NEUT % 78.8 % (50.0-75.0); NRBC % 0.1 % (0.0-2.0); RBC 3.81 Mil/uL (4.40-5.90); RED CELL DISTRIBUTION WIDTH 14.4 % (11.5-14.5); WHITE BLOOD COUNT 13.6 K/uL (4.8-10.8)
[2017-12-26 06:33] LABS: ALB/GLOB RATIO 1.1 (1.0-2.1); ALBUMIN 3.6 g/dL (3.5-5.0); ALT/SGPT 55 U/L (21-72); AST/SGOT 116 U/L (17-59); BLOOD UREA NITROGEN 25 mg/dL (9-20); CALCIUM 8.5 mg/dl (8.6-10.4); GFR AFRICAN-AMERICAN > 60; GFR NON-AFRICAN AMERICAN > 60
[2017-12-26] MEDS: (Novolin R) Insulin Human Regular 100 units/ml vial SC SCH ×4 (07:40→21:32)
[2017-12-26] MEDS: Metoprolol Succinate 12.5 mg XL Tab PO SCH ×2 (09:21→19:02)
--- NOTE | 2017-12-26 12:21 | CARD ---
APPROVED REPORT EXAM: Two-dimensional and M-mode echocardiogram with Doppler and color Doppler. Other Information Quality : GoodR[employer] : INDICATION Dyspnea Chest Pain Status/Post MD RISK FACTORS Diabetes 2D DIMENSIONS IVSd1.1 (0.7-1.1cm)LVDd3.6 (3.9-5.9cm) PWd1.2 (0.7-1.1cm)LVDs3.1 (2.5-4.0cm) FS (%) 14.4 %LVEF (%)31.4 (>50%) M-Mode DIMENSIONS Left Atrium (MM)2.90 (2.5-4.0cm)Aortic Root3.35 (2.2-3.7cm) Aortic Cusp Exc.1.84 (1.5-2.0cm) Mitral Valve MV E Lrctuskf73.0cm/sMV A Xocctvnf96.1cm/sE/A ratio0.7 TDI E/Lateral E'0.0E/Medial E'0.0 LEFT VENTRICLE The left ventricle is normal size. There is normal left ventricular wall thickness. The systolic function is mildly to moderately impaired. Transmitral Doppler flow pattern is abnormal. RIGHT VENTRICLE The right ventricle is normal size. ATRIA The left atrium size is normal. The right atrium size is normal. AORTIC VALVE The aortic valve is normal in structure. MITRAL VALVE The mitral valve is normal in structure. TRICUSPID VALVE The tricuspid valve is normal in structure. <Conclusion> Mild to moderate LV systolic dysfunction. Diastolic dysfunction. Normal chamber size. Wall motion Abnormalities, suggestive of CAD.
--- NOTE | 2017-12-26 13:12 | CP.PCM.DIS ---
Provider - Provider Date of Admission: 12/24/17 14:31 Attending physician: Angel Palmer MD Hospital Course - Lab Results Lab Results: Micro Results 12/24/17 16:39 Naris MRSA Culture (Admit) - Final MRSA NOT DETECTED Most Recent Lab Values WBC 13.6 K/uL (4.8-10.8) H 12/26/17 06:07 RBC 3.81 Mil/uL (4.40-5.90) L 12/26/17 06:07 Hgb 11.8 g/dL (12.0-18.0) L 12/26/17 06:07 Hct 33.0 % (35.0-51.0) L 12/26/17 06:07 MCV 86.5 fL (80.0-94.0) 12/26/17 06:07 MCH 31.0 pg (27.0-31.0) 12/26/17 06:07 MCHC 35.8 g/dL (33.0-37.0) 12/26/17 06:07 RDW 14.4 % (11.5-14.5) 12/26/17 06:07 Plt Count 166 K/uL (130-400) 12/26/17 06:07 MPV 11.8 fL (7.2-11.7) H 12/26/17 06:07 Neut % (Auto) 78.8 % (50.0-75.0) H 12/26/17 06:07 Lymph % (Auto) 11.0 % (20.0-40.0) L 12/26/17 06:07 [place] % (Auto) 9.6 % (0.0-10.0) 12/26/17 06:07 Eos % (Auto) 0.2 % (0.0-4.0) 12/26/17 06:07 Baso % (Auto) 0.4 % (0.0-2.0) 12/26/17 06:07 Neut # (Auto) 10.7 K/uL (1.8-7.0) H 12/26/17 06:07 Lymph # (Auto) 1.5 K/uL (1.0-4.3) 12/26/17 06:07 [place] # (Auto) 1.3 K/uL (0.0-0.8) H 12/26/17 06:07 Eos # (Auto) 0.0 K/uL (0.0-0.7) 12/26/17 06:07 Baso # (Auto) 0.1 K/uL (0.0-0.2) 12/26/17 06:07 Neutrophils % (Manual) 62 % (50-75) 12/25/17 06:28 Band Neutrophils % 27 % (0-2) H* 12/25/17 06:28 Lymphocytes % (Manual) 5 % (20-40) L 12/25/17 06:28 Monocytes % (Manual) 6 % (0-10) 12/25/17 06:28 Platelet Estimate Normal (NORMAL) 12/25/17 06:28 Large Platelets Present 12/25/17 06:28 RBC Morphology Normal 12/25/17 06:28 PT 11.9 SECONDS (9.7-12.2) 12/24/17 14:27 INR 1.1 12/24/17 14:27 APTT 36 SECONDS (21-34) H 12/24/17 14:27 Sodium 128 mmol/L (132-148) L 12/26/17 06:04 Potassium 4.1 mmol/L (3.6-5.2) 12/26/17 06:04 Chloride 99 mmol/L (98-107) 12/26/17 06:04 Carbon Dioxide 19 mmol/L (22-30) L 12/26/17 06:04 Anion Gap 14 (10-20) 12/26/17 06:04 BUN 25 mg/dL (9-20) H 12/26/17 06:04 Creatinine 1.1 mg/dL (0.8-1.5) 12/26/17 06:04 Est GFR ( Amer) > 60 12/26/17 06:04 Est GFR (Non-Af Amer) > 60 12/26/17 06:04 POC Glucose (mg/dL) 326 mg/dL (65-110) H 12/26/17 11:06 Random Glucose 153 mg/dL (75-110) H 12/26/17 06:04 Hemoglobin A1c 8.2 % (4.2-6.5) H 12/25/17 06:28 Calcium 8.5 mg/dl (8.6-10.4) L 12/26/17 06:04 Phosphorus 2.3 mg/dL (2.5-4.5) L 12/26/17 06:04 Magnesium 2.0 mg/dL (1.6-2.3) 12/26/17 06:04 Total Bilirubin 0.9 mg/dL (0.2-1.3) 12/26/17 06:04 AST 116 U/L (17-59) H D 12/26/17 06:04 ALT 55 U/L (21-72) 12/26/17 06:04 Alkaline Phosphatase 80 U/L (38-126) 12/26/17 06:04 Total Creatine Kinase 1138 U/L (55-170) H 12/25/17 10:24 CK-MB (Mass) 30.9 ng/mL (0.0-3.38) H 12/25/17 10:24 Troponin I 98.4000 ng/mL (0.00-0.120) H* 12/25/17 10:24 Total Protein 6.8 g/dL (6.3-8.3) 12/26/17 06:04 Albumin 3.6 g/dL (3.5-5.0) 12/26/17 06:04 Globulin 3.2 gm/dL (2.2-3.9) 12/26/17 06:04 Albumin/Globulin Ratio 1.1 (1.0-2.1) 12/26/17 06:04 Triglycerides 143 mg/dL (0-149) 12/24/17 14:27 Cholesterol 199 mg/dL (0-199) 12/24/17 14:27 LDL Cholesterol Direct 145 mg/dL (0-129) H 12/24/17 14:27 HDL Cholesterol 42 mg/dL (30-70) 12/24/17 14:27 Blood Type O POSITIVE 12/24/17 14:27 Antibody Screen Negative 12/24/17 14:27 Discharge Exam - Head Exam Head Exam: NORMAL INSPECTION, NORMOCEPHALIC Discharge Plan - Discharge Medications Prescriptions: Aspirin [Aspirin Chewable] 81 mg PO DAILY #30 chew Atorvastatin [Lipitor] 40 mg PO HS #30 tab Clopidogrel [Plavix] 75 mg PO DAILY #30 tab Losartan [Cozaar] 25 mg PO DAILY #30 tab metFORMIN [glucOPHAGE] 500 mg PO BIDCC #30 tab Metoprolol Succinate XL [Toprol XL] 12.5 mg PO BID #30 tab - Follow Up Plan Condition: SERIOUS Disposition: HOME/ ROUTINE Additional Instructions: please follow up in one week in the [facility]. It is located on [facility] [place] [facility]. Come thru the main entrance and ask the cyber security manager where to go. Please bring all of your medications with you. I have written several medications for you. It is imperative that you take these medications as directed. I have attached the clinic information for you. Please call the number if you have any questions.
--- NOTE | 2017-12-26 14:32 | CP.PCM.PN ---
Subjective - Date & Time of Evaluation Date of Evaluation: 12/26/17 Time of Evaluation: 14:32 - Subjective Subjective: Patient seen and examined at bedside. Denies any chest pain or sob. Femoral cath site is not bothering him. No diaphoresis. No complaints at this time. Ambulating without difficulty. tolerating diet. Objective - Vital Signs/Intake and Output Vital Signs (last 24 hours): Temp Pulse Resp BP Pulse Ox 98.9 F 102 H 16 105/64 99 12/25/17 16:00 12/26/17 08:45 12/26/17 08:45 12/26/17 08:45 12/26/17 08:45 Intake and Output: 12/26/17 12/26/17 06:59 18:59 Intake Total 0 0 Output Total 800 Balance -800 0 - Medications Medications: Current Medications Aspirin (Aspirin Chewable) 81 mg PO DAILY [facility] Last Admin: 12/26/17 09:21 Dose: 81 mg Clopidogrel Bisulfate (Plavix) 75 mg PO DAILY [facility] Last Admin: 12/26/17 09:21 Dose: 75 mg Heparin Sodium (Porcine) (Heparin) 5,000 units SC Q8 [facility] Last Admin: 12/26/17 13:35 Dose: 5,000 units Insulin Human Regular (Novolin R) 0 unit SC ACHS [facility] PRN Reason: Protocol Last Admin: 12/26/17 11:27 Dose: 8 u Losartan Potassium (Cozaar) 25 mg PO DAILY [facility] Last Admin: 12/26/17 09:21 Dose: 25 mg Metformin HCl (Glucophage) 500 mg PO BIDCC [facility] Last Admin: 12/26/17 08:18 Dose: 500 mg Metoprolol Succinate (Toprol Xl) 12.5 mg PO BID [facility] Last Admin: 12/26/17 09:21 Dose: 12.5 mg Ondansetron HCl (Zofran Inj) 4 mg IVP Q6H PRN PRN Reason: Nausea/Vomiting Rosuvastatin Calcium (Crestor) 20 mg PO [facility] - Labs Labs: 12/26/17 06:07 12/26/17 06:04 PT 11.9 SECONDS (9.7-12.2) 12/24/17 14:27 INR 1.1 12/24/17 14:27 APTT 36 SECONDS (21-34) H 12/24/17 14:27 - Constitutional Appears: Well - Head Exam Head Exam: ATRAUMATIC, NORMAL INSPECTION, NORMOCEPHALIC - Eye Exam Eye Exam: EOMI, Normal appearance, PERRL Pupil Exam: NORMAL ACCOMODATION, PERRL - ENT Exam ENT Exam: Mucous Membranes Moist, Normal Exam - Neck Exam Neck Exam: Full ROM, Normal Inspection. absent: Lymphadenopathy - Respiratory Exam Respiratory Exam: Clear to Ausculation Bilateral, NORMAL BREATHING PATTERN - Cardiovascular Exam Cardiovascular Exam: REGULAR RHYTHM, +S1, +S2. absent: Murmur - GI/Abdominal Exam GI & Abdominal Exam: Soft, Normal Bowel Sounds. absent: Tenderness - Extremities Exam Extremities Exam: Full ROM, Normal Capillary Refill, Normal Inspection. absent : Joint Swelling, Pedal Edema - Back Exam Back Exam: NORMAL INSPECTION - Neurological Exam Neurological Exam: Alert, Awake, CN II-XII Intact, Normal Gait, Oriented x3 - Psychiatric Exam Psychiatric exam: Normal Affect, Normal Mood - Skin Skin Exam: Dry, Intact, Normal Color, Warm Assessment and Plan (1) STEMI (ST elevation myocardial infarction) Assessment & Plan: Cardio is Dr. Madrid. Patient is not having any chest pain or SOB and tolerated PCI well. Today he had one episode where his HR jumped to 180 and then resolved without any intervention. Because he is fresh from PCI we will contact Dr. Madrid and let him know. We will keep him on today and observe. We will get EKG and continue current therapy. Status: Resolved
--- NOTE | 2017-12-26 21:31 | CP.PCM.PN ---
Subjective - Date & Time of Evaluation Date of Evaluation: 12/26/17 Time of Evaluation: 17:45 - Subjective Subjective: Patient discharge postponed due to tachyarrhythmia Resolved spontaneously Chest pain free Stable hemodynamics D/C in am Continue all meds F/U Dr. Santoro as out patient Objective - Vital Signs/Intake and Output Vital Signs (last 24 hours): Temp Pulse Resp BP Pulse Ox 99.4 F 95 H 21 113/73 98 12/26/17 16:00 12/26/17 21:26 12/26/17 16:00 12/26/17 16:00 12/26/17 16:00 Intake and Output: 12/26/17 12/27/17 18:59 06:59 Intake Total 0 Balance 0 - Medications Medications: Current Medications Aspirin (Aspirin Chewable) 81 mg PO DAILY [facility] Last Admin: 12/26/17 09:21 Dose: 81 mg Clopidogrel Bisulfate (Plavix) 75 mg PO DAILY [facility] Last Admin: 12/26/17 09:21 Dose: 75 mg Heparin Sodium (Porcine) (Heparin) 5,000 units SC Q8 [facility] Last Admin: 12/26/17 13:35 Dose: 5,000 units Insulin Human Regular (Novolin R) 0 unit SC ACHS [facility] PRN Reason: Protocol Last Admin: 12/26/17 16:42 Dose: 2 u Losartan Potassium (Cozaar) 25 mg PO DAILY [facility] Last Admin: 12/26/17 09:21 Dose: 25 mg Metformin HCl (Glucophage) 500 mg PO BIDCC [facility] Last Admin: 12/26/17 16:42 Dose: 500 mg Metoprolol Succinate (Toprol Xl) 12.5 mg PO BID [facility] Last Admin: 12/26/17 19:02 Dose: 12.5 mg Ondansetron HCl (Zofran Inj) 4 mg IVP Q6H PRN PRN Reason: Nausea/Vomiting Rosuvastatin Calcium (Crestor) 20 mg PO HS [facility] - Labs Labs: 12/26/17 06:07 12/26/17 06:04 PT 11.9 SECONDS (9.7-12.2) 12/24/17 14:27 INR 1.1 12/24/17 14:27 APTT 36 SECONDS (21-34) H 12/24/17 14:27
[2017-12-27 01:16] VITALS: RESP 20
[2017-12-27 07:28] LABS: BASO % 0.3 % (0.0-2.0); EOS # 0.1 K/uL (0.0-0.7); EOS % 1.4 % (0.0-4.0); HEMOGLOBIN 11.9 g/dL (12.0-18.0); LYMPH # 1.1 K/uL (1.0-4.3); LYMPH % 11.9 % (20.0-40.0); MEAN CELL VOLUME 86.8 fL (80.0-94.0); MEAN CORPUSCULAR HEMOGLOBIN 31.2 pg (27.0-31.0); MEAN CORPUSCULAR HGB CONC 35.9 g/dL (33.0-37.0); MONO # 0.9 K/uL (0.0-0.8); MONO % 9.9 % (0.0-10.0); NEUT # 7.1 K/uL (1.8-7.0); NEUT % 76.5 % (50.0-75.0); RBC 3.81 Mil/uL (4.40-5.90); RED CELL DISTRIBUTION WIDTH 14.1 % (11.5-14.5); WHITE BLOOD COUNT 9.2 K/uL (4.8-10.8)
[2017-12-27 07:57] LABS: ALB/GLOB RATIO 1.1 (1.0-2.1); ALBUMIN 3.6 g/dL (3.5-5.0); ALT/SGPT 48 U/L (21-72); AST/SGOT 73 U/L (17-59); BLOOD UREA NITROGEN 24 mg/dL (9-20); CALCIUM 8.7 mg/dl (8.6-10.4); GFR AFRICAN-AMERICAN > 60; GFR NON-AFRICAN AMERICAN > 60
[2017-12-27] MEDS: (Novolin R) Insulin Human Regular 100 units/ml vial SC SCH (08:18)
--- NOTE | 2017-12-27 09:13 | CP.PCM.DIS ---
Provider - Provider Date of Admission: 12/24/17 14:31 Attending physician: Angel Palmer MD Primary care physician: Clinic Consults: Cardio: Julius Time Spent in preparation of Discharge (in minutes): 45 Diagnosis - Discharge Diagnosis (1) STEMI (ST elevation myocardial infarction) Status: Resolved Hospital Course - Lab Results Lab Results: Micro Results 12/24/17 16:39 Naris MRSA Culture (Admit) - Final MRSA NOT DETECTED Most Recent Lab Values WBC 9.2 K/uL (4.8-10.8) 12/27/17 07:12 RBC 3.81 Mil/uL (4.40-5.90) L 12/27/17 07:12 Hgb 11.9 g/dL (12.0-18.0) L 12/27/17 07:12 Hct 33.1 % (35.0-51.0) L 12/27/17 07:12 MCV 86.8 fL (80.0-94.0) 12/27/17 07:12 MCH 31.2 pg (27.0-31.0) H 12/27/17 07:12 MCHC 35.9 g/dL (33.0-37.0) 12/27/17 07:12 RDW 14.1 % (11.5-14.5) 12/27/17 07:12 Plt Count 194 K/uL (130-400) 12/27/17 07:12 MPV 11.0 fL (7.2-11.7) 12/27/17 07:12 Neut % (Auto) 76.5 % (50.0-75.0) H 12/27/17 07:12 Lymph % (Auto) 11.9 % (20.0-40.0) L 12/27/17 07:12 Harrison % (Auto) 9.9 % (0.0-10.0) 12/27/17 07:12 Eos % (Auto) 1.4 % (0.0-4.0) 12/27/17 07:12 Baso % (Auto) 0.3 % (0.0-2.0) 12/27/17 07:12 Neut # (Auto) 7.1 K/uL (1.8-7.0) H 12/27/17 07:12 Lymph # (Auto) 1.1 K/uL (1.0-4.3) 12/27/17 07:12 Harrison # (Auto) 0.9 K/uL (0.0-0.8) H 12/27/17 07:12 Eos # (Auto) 0.1 K/uL (0.0-0.7) 12/27/17 07:12 Baso # (Auto) 0.0 K/uL (0.0-0.2) 12/27/17 07:12 Neutrophils % (Manual) 62 % (50-75) 12/25/17 06:28 Band Neutrophils % 27 % (0-2) H* 12/25/17 06:28 Lymphocytes % (Manual) 5 % (20-40) L 12/25/17 06:28 Monocytes % (Manual) 6 % (0-10) 12/25/17 06:28 Platelet Estimate Normal (NORMAL) 12/25/17 06:28 Large Platelets Present 12/25/17 06:28 RBC Morphology Normal 12/25/17 06:28 PT 11.9 SECONDS (9.7-12.2) 12/24/17 14:27 INR 1.1 12/24/17 14:27 APTT 36 SECONDS (21-34) H 12/24/17 14:27 Sodium 134 mmol/L (132-148) 12/27/17 07:12 Potassium 4.3 mmol/L (3.6-5.2) 12/27/17 07:12 Chloride 101 mmol/L (98-107) 12/27/17 07:12 Carbon Dioxide 22 mmol/L (22-30) 12/27/17 07:12 Anion Gap 16 (10-20) 12/27/17 07:12 BUN 24 mg/dL (9-20) H 12/27/17 07:12 Creatinine 1.1 mg/dL (0.8-1.5) 12/27/17 07:12 Est GFR ( Amer) > 60 12/27/17 07:12 Est GFR (Non-Af Amer) > 60 12/27/17 07:12 POC Glucose (mg/dL) 147 mg/dL (65-110) H 12/26/17 21:02 Random Glucose 138 mg/dL (75-110) H 12/27/17 07:12 Hemoglobin A1c 8.2 % (4.2-6.5) H 12/25/17 06:28 Calcium 8.7 mg/dl (8.6-10.4) 12/27/17 07:12 Phosphorus 3.0 mg/dL (2.5-4.5) 12/27/17 07:12 Magnesium 2.1 mg/dL (1.6-2.3) 12/27/17 07:12 Total Bilirubin 1.1 mg/dL (0.2-1.3) 12/27/17 07:12 AST 73 U/L (17-59) H D 12/27/17 07:12 ALT 48 U/L (21-72) 12/27/17 07:12 Alkaline Phosphatase 84 U/L (38-126) 12/27/17 07:12 Total Creatine Kinase 1138 U/L (55-170) H 12/25/17 10:24 CK-MB (Mass) 30.9 ng/mL (0.0-3.38) H 12/25/17 10:24 Troponin I 98.4000 ng/mL (0.00-0.120) H* 12/25/17 10:24 Total Protein 6.9 g/dL (6.3-8.3) 12/27/17 07:12 Albumin 3.6 g/dL (3.5-5.0) 12/27/17 07:12 Globulin 3.2 gm/dL (2.2-3.9) 12/27/17 07:12 Albumin/Globulin Ratio 1.1 (1.0-2.1) 12/27/17 07:12 Triglycerides 143 mg/dL (0-149) 12/24/17 14:27 Cholesterol 199 mg/dL (0-199) 12/24/17 14:27 LDL Cholesterol Direct 145 mg/dL (0-129) H 12/24/17 14:27 HDL Cholesterol 42 mg/dL (30-70) 12/24/17 14:27 Blood Type O POSITIVE 12/24/17 14:27 Antibody Screen Negative 12/24/17 14:27 - Hospital Course Hospital Course: On Admission: This is a 62 year old male, Prem speaking, with past history of of DM type 2 on metformin, who presented to the hospital with chest pain for 2 days prior to cath. The patient arrived here from [facility] in October. He went to see Dr. Johnathan Hong 2 days ago, and received some medications that he cannot recall and never filled. The Patient does not have family here, he is staying with his friend. 2 days ago, the patient had sharp chest pain which was bearable, however over the course of 2 days it made him dizzy, weak, and sweaty. In the ED, the patient was code heart with ST depressions in the inferior wall leads. Cardiac Cath revealed RCA: Ostial 80%, Mid 100%, PDA 80%, EF: 40%, Inferior akinetic - 4 stents placed. Denied fever, chills, headache, chest pain, SOB, abdominal pain , n/v/d/c, or urinary symptoms. Hospital course: Patient was taken for PCI. s/p 4 stents. RCA: Ostial 80%, Mid 100%, PDA 80%. Patient stable after cardiac cath. Started on ASA, Plavix, Statin, ARB and BB. Patient had A1C at 8. Was started on Metformin 500 BID. On the expected date of discharge 12/26/17 patient had tachyarythmia in the 180 that resolved spontaneously. We decided to observe overnight at that time. This AM he is doing well. Cardio ok with D/C. Patient ok to d/c home with prescriptions for the above medications as well as instructions to follow up in the clinic for DM management as he is a new diabetic and to manage his other medical problems. Patient advised to stop using tobacco. Discharge Exam - Head Exam Head Exam: ATRAUMATIC, NORMAL INSPECTION, NORMOCEPHALIC - Eye Exam Eye Exam: EOMI, Normal appearance, PERRL Pupil Exam: NORMAL ACCOMODATION, PERRL - Respiratory Exam Respiratory Exam: Clear to PA & Lateral, NORMAL BREATHING PATTERN, UNREMARKABLE - Cardiovascular Exam Cardiovascular Exam: REGULAR RHYTHM - GI/Abdominal Exam GI & Abdominal Exam: Normal Bowel Sounds, Soft. absent: Distended, Tenderness - Neurological Exam Neurological exam: Alert, CN II-XII Intact, Normal Gait, Oriented x3, Reflexes Normal - Psychiatric Exam Psychiatric exam: Normal Affect, Normal Mood - Skin Skin Exam: Dry, Intact, Normal Color, Warm Discharge Plan - Discharge Medications Prescriptions: Aspirin [Aspirin Chewable] 81 mg PO DAILY #30 chew Atorvastatin [Lipitor] 40 mg PO HS #30 tab Clopidogrel [Plavix] 75 mg PO DAILY #30 tab Losartan [Cozaar] 25 mg PO DAILY #30 tab metFORMIN [glucOPHAGE] 500 mg PO BIDCC #30 tab Metoprolol Succinate XL [Toprol XL] 12.5 mg PO BID #30 tab - Follow Up Plan Condition: SERIOUS Disposition: HOME/ ROUTINE Instructions: Heart Attack (DC), Aspirin, Atorvastatin, Clopidogrel, Losartan, Metformin, Metoprolol Additional Instructions: please follow up in one week in the [facility]. It is located on the [facility]. Come thru the main entrance and ask the baggage security checker where to go. Please bring all of your medications with you. I have written several medications for you. It is imperative that you take these medications as directed. I have attached the clinic information for you. Please call the number if you have any questions. Please follow up [facility] [phone] at the basement floor or in [facility] at [phone] in 10 - 14 days for cardiology referral as per dr axel hong . PLEASE TAKE TOPROL 12.5 MG PO DAILY AT 8:00 AM AND COZAAR 25 MG PO AT BEDTIME AT 8:[address] AXEL HONG . Referrals: [facility] at [facility] [Outside] Vaughn Madrid MD [Staff Provider] - Axel Hong MD [Staff Provider] -
[2017-12-27] MEDS: Metoprolol Succinate 12.5 mg XL Tab PO SCH (09:54)
[2017-12-27 10:06] VITALS: BP 94/60; PULSE 86; TEMP 98; O2SAT 98
--- NOTE | 2017-12-27 12:17 | CARD ---
APPROVED REPORT EKG Measurement Heart [id number] <Conclusion> Normal sinus rhythm Left axis deviation Inferior infarct, possibly acute Anterolateral infarct, possibly acute ACUTE RI / STEMI Consider right ventricular involvement in acute inferior infarct Abnormal ECG
--- NOTE | 2017-12-27 12:20 | CARD ---
APPROVED REPORT EKG Measurement Heart [id number] <Conclusion> Sinus rhythm with fusion complexes Inferior infarct, possibly acute Lateral injury pattern ACUTE GA / STEMI Consider right ventricular involvement in acute inferior infarct Abnormal ECG
--- NOTE | 2017-12-27 18:32 | CARD ---
APPROVED REPORT EKG Measurement Heart [id number] <Conclusion> Sinus rhythm with 1st degree AV block Inferior infarct, possibly acute Lateral injury pattern ACUTE VA / STEMI Consider right ventricular involvement in acute inferior infarct Abnormal ECG
== END 2017-12-27 11:04 | disposition home or self-care (01) | DRG 247 ==
LOC: C.ER 14:14 → C.9I 14:31 → C.5S 12-27 00:57
PROVIDERS: ADMIT Internal Medicine; ATTEND Internal Medicine
PROC: 027236Z Dilation of Coronary Artery, Three Arteries with Three Drug-eluting Intraluminal Devices, Percutaneous Approach (ICD-10-PCS; principal; 2017-12-24)
PROC: 02C03ZZ Extirpation of Matter from Coronary Artery, One Artery, Percutaneous Approach (ICD-10-PCS; 2017-12-24)
PROC: 4A023N7 Measurement of Cardiac Sampling and Pressure, Left Heart, Percutaneous Approach (ICD-10-PCS; 2017-12-24)
PROC: B211YZZ Fluoroscopy of Multiple Coronary Arteries using Other Contrast (ICD-10-PCS; 2017-12-24)
PROC: B215YZZ Fluoroscopy of Left Heart using Other Contrast (ICD-10-PCS; 2017-12-24)
DX: I21.19 ST elevation (STEMI) myocardial infarction involving other coronary artery of inferior wall (principal); E11.65 Type 2 diabetes mellitus with hyperglycemia; E78.5 Hyperlipidemia, unspecified; I10 Essential (primary) hypertension; I25.10 Atherosclerotic heart disease of native coronary artery without angina pectoris; R00.0 Tachycardia, unspecified; Z79.4 Long term (current) use of insulin